=== PATIENT | female | born 1950 ===

== ENCOUNTER → 2017-03-29 | Outpatient (CLI) | payer MEDICARE, OTHER ==
[~2017-03-29] MED LIST: ACTEMRA80 MG/4 ML IV; ASPI325; ATOR10 PO; Adipex-P37.5 MG PO; Aspirin EC81 MG PO; BACL10 PO; BUPR150ER PO; Baclofen10 MG PO; CHLORELLA100 GM MC; CLOP75 PO; CREON DR 6,0001 EACH PO; CULTURELLE1 EACH PO; CYCL10 PO; Cymbalta60 MG PO; DONE5 PO; DOXY100 PO; DULO60; FISH OIL + D31 EACH PO; FOLI1 PO; Isosorbide Mono60 MG; Isosorbide Mono60 MG PO; KRILL OIL500 MG PO; LEVSOD137 PO; Lisinopril2.5 MG PO; MEMA5TAB PO; META800 PO; METO100ER PO; METTREX2.5 PO; MORP15ER PO; MORP30ER PO; Methotrexa25 MG/1 ML SC; NIAC500ER PO; Nitrostat0.4 MG SL; OXYC5 PO; PRAM.5 PO; PRED1 PO; Prinivil5 MG PO; Rituxan10 MG/ML IV; SPIR25 PO; TIZANIDINE HCL4 MG PO; TRIA15CR3 TOP; TYROSINE PO; VITAMIN D3400 UNIT PO
[2017-03-29 16:28] LABS: Anion Gap 8 mmol/L (6-16); Blood Urea Nitrogen 16 mg/dL (8-24); Bun/Creatinine Ratio 17.2 (12.0-20.0); CO2, Blood 27 mmol/L (21-32); Calcium, Blood 8.8 mg/dL (8.5-10.1); Chloride, Blood 105 mmol/L (98-108); Creatinine, Blood 0.93 mg/dL (0.40-1.00); Glomerular Filtration Rate >60 (60-); Glucose, Blood 134 mg/dL (70-99); Potassium, Blood 4.3 mmol/L (3.5-5.5); Sodium, Blood 140 mmol/L (136-145); Thyroid Stimulating Hormone 0.942 uIU/mL (0.360-4.800)
== END | disposition home or self-care (01) ==
LOC: LAB 15:30
PROVIDERS: Internal Medicine
DX: E00.2 Congenital iodine-deficiency syndrome, mixed type (principal)
CPT/HCPCS: 80048; 84443

== ENCOUNTER 2017-10-22 08:43 | Day surgery (SDC) | payer MEDICARE, OTHER | END 2017-10-22 22:45 | disposition home or self-care (01) | LOC: RAD 08:43 → CT 10:00 → RAD 22:45 | PROVIDERS: Radiology Diagnostic Radiology | PROC: B02BYZZ Computerized Tomography (CT Scan) of Spinal Cord using Other Contrast (ICD-10-PCS; principal; 2017-10-22 10:30) | DX: M48.56XA Collapsed vertebra, not elsewhere classified, lumbar region, initial encounter for fracture (principal); M48.061 Spinal stenosis, lumbar region without neurogenic claudication | CPT/HCPCS: 36415; 62304; 72132; 85730; Q9966 ==

== ENCOUNTER → 2018-10-01 | Outpatient (CLI) | payer MEDICARE, OTHER ==
[~2018-10-01] MED LIST changes: +EUTHYROX150 MCG PO; +GABA300 PO; +LISI5 PO; +MAGNESIUM250 MG PO; +METHOTREXA25 MG/1 M8 SC; -Methotrexa25 MG/1 ML SC; +Norco 10-325 T1 EACH PO; -Prinivil5 MG PO; +SIMPONI AR50 MG/4 ML IV; +TUMS500 MG PO; +Tylenol #3 El12.5 ML PO
[2018-10-03 15:06] LABS: HPV 16 Negative (Negative); HPV 18 Negative (Negative); HPV OTHER HR TYPES Negative (Negative)
== END | disposition home or self-care (01) ==
LOC: LAB SHORT 12:47 → LAB 12:47
PROVIDERS: Obstetrics & Gynecology Gynecology
DX: Z12.4 Encounter for screening for malignant neoplasm of cervix (principal)
CPT/HCPCS: 87624; G0123

== ENCOUNTER 2018-12-23 14:20 | Inpatient (IN) | payer MEDICARE, OTHER ==
[~2018-12-23] VITALS: Ht 165.1 cm; Wt 97.9 kg
[~2018-12-23 14:20] MED LIST changes: -EUTHYROX150 MCG PO; -GABA300 PO; -MAGNESIUM250 MG PO; -Norco 10-325 T1 EACH PO; -SIMPONI AR50 MG/4 ML IV; -TUMS500 MG PO; -Tylenol #3 El12.5 ML PO
[2018-12-23] MEDS ORDERED: GABA300 PO ×2 (15:28→19:40)
[2018-12-23 15:30] LABS: BASOPHILS ABSOLUTE AUTO 0.07 K/mm3 (0.00-0.23); BASOPHILS PERCENT AUTO 1 % (0-2); EOSINOPHILS ABSOLUTE AUTO 0.54 K/mm3 (0.00-0.68); EOSINOPHILS PERCENT AUTO 5 % (0-6); Hemoglobin 11.8 g/dL (11.5-16.0); IMMATURE GRAN ABSOLUTE AUTO 0.05 K/mm3 (0.00-0.10); IMMATURE GRAN PERCENT AUTO 1 % (0-1); LYMPHOCYTES ABSOLUTE AUTO 1.88 K/mm3 (0.84-5.20); LYMPHOCYTES PERCENT AUTO 18 % (21-46); MONOCYTES ABSOLUTE AUTO 1.49 K/mm3 (0.16-1.47); MONOCYTES PERCENT AUTO 15 % (4-13); Mean Corpuscular HGB Conc 32.8 g/dL (31.5-36.5); Mean Corpuscular Volume 107 fL (80-100); Mean Platelet Volume 9.5 fL (9.1-12.4); NEUTROPHILS ABSOLUTE AUTO 6.28 K/mm3 (1.96-9.15); NEUTROPHILS PERCENT AUTO 61 % (41-73); Platelet Count 199 K/mm3 (150-400); RDW Coefficient Variation 13.6 % (11.7-14.2); RDW Standard Deviation 52.8 fL (35.1-46.3); Red Blood Cell Count 3.37 M/mm3 (3.80-5.20); White Blood Cell Count 10.31 K/mm3 (4.00-11.30)
[2018-12-23] MEDS ORDERED: TUMS500 MG PO (15:30)
[2018-12-23 15:53] LABS: Alanine Aminotransfer (ALT/SGP 20 U/L (12-78); Albumin, Blood 3.2 g/dL (3.4-5.0); Albumin/Globulin Ratio 0.9 (0.8-1.8); Alk Phos 81 U/L (50-136); Anion Gap 5 mmol/L (6-16); Aspartate Aminotrans (AST/SGOT 16 U/L (12-37); Bilirubin, Total 0.6 mg/dL (0.1-1.0); Blood Urea Nitrogen 25 mg/dL (8-24); Bun/Creatinine Ratio 28.1 (12.0-20.0); CO2, Blood 30 mmol/L (21-32); Calcium, Blood 8.7 mg/dL (8.5-10.1); Chloride, Blood 104 mmol/L (98-108); Creatinine, Blood 0.89 mg/dL (0.40-1.00); Globulin, Blood 3.6 g/dL (2.2-4.0); Glomerular Filtration Rate >60 (60-); Glucose, Blood 118 mg/dL (70-99); Potassium, Blood 4.5 mmol/L (3.5-5.5); Sodium, Blood 139 mmol/L (136-145); Total Protein, Blood 6.8 g/dL (6.4-8.2)
[2018-12-23 17:24] LABS: Source, Urine Clean Catch
[2018-12-23 17:35] LABS: Bilirubin, Urine Neg (Neg); Blood, Urine Neg (Neg); Glucose Qualitative, Urine Neg (Neg); Ketones, Urine Neg (Neg); Leukocyte Esterase, Urine Neg (Neg); Nitrite, Urine Neg (Neg); Protein, Urine Neg (Neg); Urobilinogen, Urine NORM (Normal)
[2018-12-23 17:46] LABS: Appearance, Urine Clear (Clear); Color, Urine Yellow (P-Yellow)
[2018-12-23] MEDS ORDERED: EUTHYROX150 MCG PO (19:30)
[2018-12-23] MEDS ORDERED: Norco 10-325 T1 EACH PO (19:40)
[2018-12-23] MEDS ORDERED: MAGNESIUM250 MG PO (19:43)
[2018-12-23] MEDS ORDERED: SIMPONI AR50 MG/4 ML IV (19:44)
[2018-12-23 21:32] LABS: Thyroid Stimulating Hormone 0.103 uIU/mL (0.360-4.800)
--- NOTE | 2018-12-24 05:40 | NUR ---
PT ARRIVED TO THE FLOOR AT 2215 VIA STRETCHER. PT NOT IN ACUTE DISTRESS, VSS. PT DID COMPLAIN OF PAIN DURING THE SHIFT, BUT WAS ABLE TO GET A FEW HOURS SLEEP. PT WORE CPAP AT NIGHT. NO NEURO DEFICITS NOTED THIS SHIFT. PT IS INCONTINENT OF URINE AND CHANGED NEEDED. NO OTHER COMPLAINTS AT THIS TIME. WILL CONTINUE TO MONITOR.
[2018-12-24 05:46] LABS: Anion Gap 5 mmol/L (6-16); Blood Urea Nitrogen 19 mg/dL (8-24); Bun/Creatinine Ratio 23.1 (12.0-20.0); CO2, Blood 28 mmol/L (21-32); Calcium, Blood 8.5 mg/dL (8.5-10.1); Chloride, Blood 106 mmol/L (98-108); Creatinine, Blood 0.82 mg/dL (0.40-1.00); Free Thyroxine 1.12 ng/dL (0.70-1.60); Glomerular Filtration Rate >60 (60-); Glucose, Blood 103 mg/dL (70-99); Potassium, Blood 4.3 mmol/L (3.5-5.5); Sodium, Blood 139 mmol/L (136-145)
[2018-12-24 05:49] LABS: Triiodothyronine, Free 1.97 pg/mL (2.18-3.98)
--- NOTE | 2018-12-24 18:01 | NUR ---
PT A/O. EATING AND DRINKING WELL. PT HAS CHRONIC PAIN IN HER KNEES, TREATED PER EMAR. PT WORKED WITH OT TODAY AND TOLERATED WELL, OT REPORTED THAT HER KNEES GIVE OUT OCCASIONALLY AND RECOMENDED BEING PREPARED. PT UP TO THE CHAIR TWICE DURING THIS SHIFT AND TOLERATED WELL.
--- NOTE | 2018-12-25 10:52 | NUR ---
PATIENT HAS BEEN HAVING A BLOODY NOSE SINCE THIS MORNING. SHE STATES SHE BLEW HER NOSE AND THAT STARTED THE BLEEDING. PLACED HUMIDIFICATION ON HER OXYGEN. HOPEFULLY THAT WILL IMPROVE THE BLEEDING.
--- NOTE | 2018-12-25 18:30 | NUR ---
SHIFT SUMMARY PATIENT HAD SOME DIFFICULTY WITH PAIN MANAGEMENT. PATIENT GIVEN SCHEDULED MS CONTIN ORDERED AND PRN APAP Q4HRS PER REQUEST. THE TYLENOL SEEMS TO HELP. PAIN IS IN BILATERAL KNEES. R KNEE XRAY HAS BEEN ORDERED FOR PATIENT. PATIENT IS A/Ox4 AND COOPERATIVE WITH STAFF. WILL CONTINUE TO MONITOR AND PROVIDE CARE NEEDED.
[2018-12-26 05:36] LABS: BASOPHILS ABSOLUTE AUTO 0.06 K/mm3 (0.00-0.23); BASOPHILS PERCENT AUTO 1 % (0-2); EOSINOPHILS ABSOLUTE AUTO 0.61 K/mm3 (0.00-0.68); EOSINOPHILS PERCENT AUTO 9 % (0-6); Hematocrit 30.6 % (33.0-51.0); IMMATURE GRAN ABSOLUTE AUTO 0.05 K/mm3 (0.00-0.10); IMMATURE GRAN PERCENT AUTO 1 % (0-1); LYMPHOCYTES ABSOLUTE AUTO 1.73 K/mm3 (0.84-5.20); LYMPHOCYTES PERCENT AUTO 25 % (21-46); MONOCYTES ABSOLUTE AUTO 0.72 K/mm3 (0.16-1.47); MONOCYTES PERCENT AUTO 10 % (4-13); Mean Corpuscular HGB 34.8 pg (26.0-34.0); Mean Corpuscular HGB Conc 32.7 g/dL (31.5-36.5); Mean Corpuscular Volume 107 fL (80-100); Mean Platelet Volume 9.4 fL (9.1-12.4); NEUTROPHILS ABSOLUTE AUTO 3.78 K/mm3 (1.96-9.15); NEUTROPHILS PERCENT AUTO 54 % (41-73); Platelet Count 186 K/mm3 (150-400); RDW Coefficient Variation 13.2 % (11.7-14.2); RDW Standard Deviation 50.9 fL (35.1-46.3); Red Blood Cell Count 2.87 M/mm3 (3.80-5.20); White Blood Cell Count 6.95 K/mm3 (4.00-11.30)
[2018-12-26 06:12] LABS: Anion Gap 6 mmol/L (6-16); Blood Urea Nitrogen 19 mg/dL (8-24); Bun/Creatinine Ratio 23.5 (12.0-20.0); CO2, Blood 29 mmol/L (21-32); Calcium, Blood 8.6 mg/dL (8.5-10.1); Chloride, Blood 103 mmol/L (98-108); Creatinine, Blood 0.81 mg/dL (0.40-1.00); Glomerular Filtration Rate >60 (60-); Glucose, Blood 105 mg/dL (70-99); Potassium, Blood 3.9 mmol/L (3.5-5.5); Sodium, Blood 138 mmol/L (136-145)
--- NOTE | 2018-12-26 06:43 | NUR ---
PATIENT REPORTS TO ME THIS MORNING THAT SOMETIMES SHE WAKES UP WITH A BLOODY MOUTH AND SO SHE DID, ALLY COLORED DRIED BLOOD ON HER LIPS. WHEN ASKED IF SHE REPORTED SPONTANEOUS BLEEDING TO HER DR. PASSED THIS INFO TO DAY NURSE.
--- NOTE | 2018-12-26 16:45 | NUR ---
SHIFT SUMMARY PATIENT HAS BEEN WITHOUT ISSUE OR CONCERN THIS SHIFT. SHE HAS HAD MUCH BETTER PAIN CONTROL TODAY THAN YESTERDAY AND IS NOTED TO BEING MUCH STRONGER WITH HER TRANSFERS. DR TORRES ASKED THAT PATIENT BE WEANED OFF OF OXYGEN AND TO CLOSELY MONITOR THE PATIENT'S O2 SATS. OXYGEN TURNED DOWN FROM 2L TO 1L ABOUT 30 MINUTES AGO AND THE PATIENT WAS SAT'ING IN THE 's. I THEN TURNED HER OXYGEN COMPLETELY OFF AND SHE HAS BEEN SAT'ING AT OR ABOVE 90 THIS ENTIRE TIME. THE PATIENT IS ON CONTINUOUS BIOX WHICH WOULD ALERT WITH LOW SATS. THE PATIENT IS PLEASANT AND COOPERATIVE WITH STAFF. WILL CONTINUE TO MONITOR AND PROVIDE CARE NEEDED.
--- NOTE | 2018-12-26 23:22 | NUR ---
1919: ASSUMED CARE OF PATIENT. PT SITTING IN CHAIR VISITING WITH FAMILY. PT DENIES PAIN, SOB, NAUSEA, DECLINES TO REPOSITION. CALL GREEN WITHIN REACH. 1999: ASSESSMENT COMPLETE. PT O2=94$ ON 1L N/C. IV C/D/I 2118: MEDS GIVEN PER EMAR. O2 97% ON 1L N/C TYLENOL GIVEN ALSO FOR GENERALIZED PAIN
--- NOTE | 2018-12-27 00:05 | NUR ---
SPOKE TO BROOM STITCHER DAMION HARPER REGARDING PT C/O CP. V/S ARE GOOD AT 111/70, HR62, O2 95% RR16, HEARD GAS BUBBLES WHEN I TOOK A LISTEN TO HER HEART. GAVE PATIENT SOME SODA AND GOT HER UP TO DANGLE AT THE BEDSIDE. SHE STARTED TO FEEL BETTER. BROOM STITCHER CAME TO THE FLOOR TO SEE HER.
[2018-12-27 05:45] LABS: BASOPHILS ABSOLUTE AUTO 0.07 K/mm3 (0.00-0.23); BASOPHILS PERCENT AUTO 1 % (0-2); EOSINOPHILS ABSOLUTE AUTO 0.65 K/mm3 (0.00-0.68); EOSINOPHILS PERCENT AUTO 10 % (0-6); Hemoglobin 10.3 g/dL (11.5-16.0); IMMATURE GRAN ABSOLUTE AUTO 0.02 K/mm3 (0.00-0.10); IMMATURE GRAN PERCENT AUTO 0 % (0-1); LYMPHOCYTES ABSOLUTE AUTO 1.77 K/mm3 (0.84-5.20); LYMPHOCYTES PERCENT AUTO 27 % (21-46); MONOCYTES ABSOLUTE AUTO 0.88 K/mm3 (0.16-1.47); MONOCYTES PERCENT AUTO 13 % (4-13); Mean Corpuscular HGB 34.1 pg (26.0-34.0); Mean Corpuscular HGB Conc 32.2 g/dL (31.5-36.5); Mean Corpuscular Volume 106 fL (80-100); Mean Platelet Volume 9.7 fL (9.1-12.4); NEUTROPHILS ABSOLUTE AUTO 3.21 K/mm3 (1.96-9.15); NEUTROPHILS PERCENT AUTO 49 % (41-73); Platelet Count 207 K/mm3 (150-400); RDW Coefficient Variation 13.3 % (11.7-14.2); RDW Standard Deviation 50.4 fL (35.1-46.3); Red Blood Cell Count 3.02 M/mm3 (3.80-5.20)
[2018-12-27 06:09] LABS: Albumin, Blood 2.9 g/dL (3.4-5.0); Anion Gap 6 mmol/L (6-16); Blood Urea Nitrogen 21 mg/dL (8-24); Bun/Creatinine Ratio 24.4 (12.0-20.0); CO2, Blood 29 mmol/L (21-32); Calcium, Blood 8.7 mg/dL (8.5-10.1); Chloride, Blood 103 mmol/L (98-108); Creatinine, Blood 0.86 mg/dL (0.40-1.00); Glomerular Filtration Rate >60 (60-); Glucose, Blood 89 mg/dL (70-99); Phosphorus, Blood 4.4 mg/dL (2.5-4.9); Potassium, Blood 4.1 mmol/L (3.5-5.5); Sodium, Blood 138 mmol/L (136-145)
[2018-12-27] MEDS ORDERED: Tylenol #3 El12.5 ML PO (10:50)
--- NOTE | 2018-12-27 12:43 | NUR ---
DISCHARGE SUMMARY PATIENT GIVEN ALL MEDICATIONS PRIOR TO DISCHARGE. MEDICATION LIST AND INFORMATION SENT HOME WITH THE PATIENT PRIOR TO HER DISCHARGE THIS MORNING. SPOKE WITH [facility] [place] ABOUT THE PATIENT'S CURRENT OXYGEN NEED AND VERIFIED WITH THE ON-CALL ABOUT THE PRESCRIPTION. THIS WAS FAXED OVER TO [facility] [place] TO BE SET UP AT THE PATIENT'S HOME. PATIENT TOOK ALL BELONGINGS WITH HER.
== END 2018-12-27 12:10 | disposition home or self-care (01) | DRG 546 ==
LOC: ER 14:20 → MEDS 14:21 → ENPENDDIS 12-27 10:12 → MEDS 12-27 12:10
PROVIDERS: Emergency Medicine; Family Medicine; Internal Medicine Gastroenterology; Nurse Practitioner Acute Care; ADMIT Internal Medicine
DX: M06.9 Rheumatoid arthritis, unspecified (principal); M84.48XA Pathological fracture, other site, initial encounter for fracture; Q78.0 Osteogenesis imperfecta; M62.838 Other muscle spasm; G47.33 Obstructive sleep apnea (adult) (pediatric); I25.10 Atherosclerotic heart disease of native coronary artery without angina pectoris; I10 Essential (primary) hypertension; E03.9 Hypothyroidism, unspecified; W19.XXXA Unspecified fall, initial encounter; M54.9 Dorsalgia, unspecified
CPT/HCPCS: 36415; 70450; 72100; 73560-RT; 73562-LT; 73562-RT; 80048; 80053; 80069; 81003; 82550; 83735; 84439; 84443; 84481; 85025; 93005; 93010; 94762; 96360; 96361; 96372; 96372-59; 97110; 97116; 97162; 97166; 97530; 97535; 99285-25; G0378; J1650; J7030; J7120

== ENCOUNTER 2019-05-20 09:26 | Day surgery (SDC) | payer MEDICARE, OTHER ==
[~2019-05-20] VITALS: Ht 165.1 cm; Wt 96.7 kg
[~2019-05-20 09:26] MED LIST changes: +CREON DR 6,0001 EACH; +DOCU100 PO; +DULO60 PO; +ERGO50000 PO; +EUTHYROX150 MCG PO; +Estrace Vagin42.5 GM; +GABA300; +GABA300 PO; +Imdur-ER60 MG; +LEVO-T150 MC1 PO; +MAGNESIUM250 MG PO; +MEMA10 PO; +NITR.4SL SL; +Norco 10-325 T1 EACH PO; +PERCOCET 10-321 EACH; +RASUVO 2525 MG/0.5 SC; +Reclast 55 MG/100 M; +SIMPONI AR50 MG/4 ML IV; +SIMPONI50 MG/0.1; +TUMS500 MG PO; +Tylenol #3 El12.5 ML PO
== END 2019-05-20 12:03 | disposition home or self-care (01) ==
LOC: ORSCSDS 09:26
PROVIDERS: Internal Medicine Gastroenterology
PROC: 0DBK8ZX Excision of Ascending Colon, Via Natural or Artificial Opening Endoscopic, Diagnostic (ICD-10-PCS; principal; 2019-05-20 10:45)
DX: Z12.11 Encounter for screening for malignant neoplasm of colon (principal); Z86.010 Personal history of colon polyps; D12.2 Benign neoplasm of ascending colon; K57.30 Diverticulosis of large intestine without perforation or abscess without bleeding; K64.8 Other hemorrhoids; I10 Essential (primary) hypertension; I25.10 Atherosclerotic heart disease of native coronary artery without angina pectoris; G47.33 Obstructive sleep apnea (adult) (pediatric); I25.2 Old myocardial infarction; M79.7 Fibromyalgia; E66.9 Obesity, unspecified; Z68.34 Body mass index [BMI] 34.0-34.9, adult; E03.9 Hypothyroidism, unspecified; Z79.899 Other long term (current) drug therapy
CPT/HCPCS: 88305; J2405; J2704; J7120

== ENCOUNTER → 2019-09-23 | Outpatient (CLI) | payer MEDICARE, OTHER ==
[2019-09-23 17:39] LABS: Campylobacter Sp Not Detected (NOT DETECT)
[2019-09-23 17:40] LABS: Adenovirus F 40/41 Not Detected (NOT DETECT); Astrovirus Not Detected (NOT DETECT); Cryptosporidium Not Detected (NOT DETECT); Cyclospora Cayetanensis Not Detected (NOT DETECT); E. Coli O157 Not Detected (NOT DETECT); Entamoeba Histolytica Not Detected (NOT DETECT); Enteroaggregative E. coli-EAEC Not Detected (NOT DETECT); Enteropathogenic E. coli-EPEC Not Detected (NOT DETECT); Enterotoxigenic E. coli-ETEC Not Detected (NOT DETECT); Giardia Lamblia Not Detected (NOT DETECT); Norovirus GI/GII Not Detected (NOT DETECT); Plesiomonas Shigelloides Not Detected (NOT DETECT); Rotavirus A Not Detected (NOT DETECT); Salmonella Sp Not Detected (NOT DETECT); Sapovirus Not Detected (NOT DETECT); Shiga Toxin-prod E. coli-STEC Not Detected (NOT DETECT); Shigella/Enteroin E. coli-EIEC Not Detected (NOT DETECT); Vibrio Cholerae Not Detected (NOT DETECT); Vibrio Sp Not Detected (NOT DETECT); Yersinia Enterocolitica Not Detected (NOT DETECT)
== END ==
LOC: LAB SHORT 10:50 → LAB 10:50
PROVIDERS: Student in an Organized Health Care Education/Training Program
DX: R19.7 Diarrhea, unspecified (principal)
CPT/HCPCS: 0097U

== ENCOUNTER 2020-09-15 04:16 | Day surgery (SDC) | payer MEDICARE, OTHER ==
[~2020-09-15 04:16] MED LIST changes: -GABA300
--- NOTE | 2020-09-15 11:42 | NUR ---
PT STATES SHE HAD A WOUND ON HER BACK. WAS TREATED WITH ANTIBIOTICS AND FINISHED THEM A WEEK AGO. WOUND IS HEALING. INFORMED DR. GUERRERO AND STATED IT IS OK TO PROCEDE WITH TODAYS INFUSION OF SIMPONI ARIA.
[2020-09-15] MEDS ORDERED: Magnesium250 MG PO (12:08)
[2020-09-15] MEDS ORDERED: VOLTAREN ARTHRI20 GM (12:09)
[2020-09-15] MEDS ORDERED: SPIR25 PO (12:10)
[2020-09-15] MEDS ORDERED: TUMS500 MG PO (12:10)
[2020-09-15] MEDS ORDERED: GABA300 PO (12:10)
[2020-09-15] MEDS ORDERED: METO100ER PO (12:12)
[2020-09-15] MEDS ORDERED: LEFL20 PO ×2 (12:12→12:14)
[2020-09-15] MEDS ORDERED: DONE5 (12:13)
[2020-09-15] MEDS ORDERED: FISH OIL 1,2001 EAC7 PO (12:13)
== END 2020-09-15 12:21 | disposition home or self-care (01) ==
LOC: ATC 04:16
DX: M06.9 Rheumatoid arthritis, unspecified (principal); I10 Essential (primary) hypertension; I25.2 Old myocardial infarction; Z79.891 Long term (current) use of opiate analgesic; Z79.899 Other long term (current) drug therapy; Z88.8 Allergy status to other drugs, medicaments and biological substances; Z96.653 Presence of artificial knee joint, bilateral
CPT/HCPCS: 96365; J1602

== ENCOUNTER 2020-11-09 01:55 | Day surgery (SDC) | payer MEDICARE, OTHER ==
[~2020-11-09] VITALS: Wt 86.3 kg
[~2020-11-09 01:55] MED LIST changes: +DONE5; +FISH OIL 1,2001 EAC7 PO; +LEFL20 PO; +Magnesium250 MG PO; +VOLTAREN ARTHRI20 GM
== END 2020-11-09 16:03 | disposition home or self-care (01) ==
LOC: ATC 01:55
DX: M06.9 Rheumatoid arthritis, unspecified (principal); I10 Essential (primary) hypertension; I25.2 Old myocardial infarction; E03.9 Hypothyroidism, unspecified; Z79.899 Other long term (current) drug therapy; Z79.891 Long term (current) use of opiate analgesic; Z88.8 Allergy status to other drugs, medicaments and biological substances
CPT/HCPCS: 96365; J1602

== ENCOUNTER 2021-01-04 02:21 | Day surgery (SDC) | payer MEDICARE, OTHER | END 2021-01-04 12:23 | disposition home or self-care (01) | LOC: ATC 02:21 | DX: M06.9 Rheumatoid arthritis, unspecified (principal); J84.9 Interstitial pulmonary disease, unspecified; M81.0 Age-related osteoporosis without current pathological fracture; I10 Essential (primary) hypertension; E03.9 Hypothyroidism, unspecified; Z79.82 Long term (current) use of aspirin; Z79.891 Long term (current) use of opiate analgesic | CPT/HCPCS: 96365; J1602 ==

== ENCOUNTER 2021-03-02 01:00 | Day surgery (SDC) | payer MEDICARE, OTHER | END 2021-03-02 12:19 | disposition home or self-care (01) | LOC: ATC 01:00 | DX: M06.09 Rheumatoid arthritis without rheumatoid factor, multiple sites (principal); I10 Essential (primary) hypertension; E03.9 Hypothyroidism, unspecified; I25.2 Old myocardial infarction; Z79.891 Long term (current) use of opiate analgesic; Z88.8 Allergy status to other drugs, medicaments and biological substances | CPT/HCPCS: 96365; J1602 ==

== ENCOUNTER 2021-04-27 02:14 | Day surgery (SDC) | payer MEDICARE, OTHER | END 2021-04-27 12:40 | disposition home or self-care (01) | LOC: ATC 02:14 | DX: M06.9 Rheumatoid arthritis, unspecified (principal); Z88.8 Allergy status to other drugs, medicaments and biological substances; I25.2 Old myocardial infarction; I10 Essential (primary) hypertension; E03.9 Hypothyroidism, unspecified; M81.0 Age-related osteoporosis without current pathological fracture; J84.9 Interstitial pulmonary disease, unspecified; Z95.5 Presence of coronary angioplasty implant and graft; Z96.653 Presence of artificial knee joint, bilateral; Z79.899 Other long term (current) drug therapy | CPT/HCPCS: 96365; J1602 ==

== ENCOUNTER 2021-10-18 02:24 | Day surgery (SDC) | payer MEDICARE, OTHER | END 2021-10-18 15:13 | disposition home or self-care (01) | LOC: ATC 02:24 | DX: M06.9 Rheumatoid arthritis, unspecified (principal) | CPT/HCPCS: 96365; J1602 ==

== ENCOUNTER 2021-12-13 07:20 | Day surgery (SDC) | payer MEDICARE, OTHER ==
[2021-12-13 09:08] LABS: BASOPHILS ABSOLUTE AUTO 0.08 K/mm3 (0.00-0.23); BASOPHILS PERCENT AUTO 1 % (0-2); EOSINOPHILS ABSOLUTE AUTO 0.29 K/mm3 (0.00-0.68); EOSINOPHILS PERCENT AUTO 4 % (0-6); Hematocrit 37.7 % (33.0-51.0); Hemoglobin 12.6 g/dL (11.5-16.0); IMMATURE GRAN ABSOLUTE AUTO 0.03 K/mm3 (0.00-0.10); IMMATURE GRAN PERCENT AUTO 0 % (0-1); LYMPHOCYTES ABSOLUTE AUTO 3.19 K/mm3 (0.84-5.20); LYMPHOCYTES PERCENT AUTO 41 % (21-46); MONOCYTES PERCENT AUTO 10 % (4-13); Mean Corpuscular HGB 33.1 pg (26.0-34.0); Mean Corpuscular HGB Conc 33.4 g/dL (31.5-36.5); Mean Corpuscular Volume 99 fL (80-100); Mean Platelet Volume 11.4 fL (9.1-12.4); NEUTROPHILS ABSOLUTE AUTO 3.41 K/mm3 (1.96-9.15); NEUTROPHILS PERCENT AUTO 44 % (41-73); Platelet Count 272 K/mm3 (150-400); RDW Coefficient Variation 13.2 % (11.7-14.2); RDW Standard Deviation 47.9 fL (35.1-46.3); Red Blood Cell Count 3.81 M/mm3 (3.80-5.20)
[2021-12-13 09:16] LABS: Albumin, Blood 3.4 g/dL (3.4-5.0); Albumin/Globulin Ratio 0.8 (0.8-1.8); Bilirubin, Total 0.5 mg/dL (0.1-1.0); Bun/Creatinine Ratio 18.5 (12.0-20.0); Calcium, Blood 8.8 mg/dL (8.5-10.1); Creatinine, Blood 1.08 mg/dL (0.40-1.00); Globulin, Blood 4.5 g/dL (2.2-4.0); Potassium, Blood 5.7 mmol/L (3.5-5.5); Total Protein, Blood 7.9 g/dL (6.4-8.2)
[2021-12-13 11:22] LABS: CHOL/HDL RATIO 3.7; Cholesterol 185 mg/dL (50-200); HDL Cholesterol 50 mg/dL (>39); LDL/HDL RATIO 1.8; Low Density Lipoprotein Chol 88 mg/dL (0-110); Thyroid Stimulating Hormone 0.398 uIU/mL (0.360-4.800); Triglycerides 234 mg/dL (30-160); Very Low Density Lipoprot Chol 46 mg/dL (6-32)
== END 2021-12-13 09:36 | disposition home or self-care (01) ==
LOC: ATC 07:20
PROVIDERS: Family Medicine; Internal Medicine Rheumatology
DX: M06.9 Rheumatoid arthritis, unspecified (principal); Z88.8 Allergy status to other drugs, medicaments and biological substances; I25.2 Old myocardial infarction; I10 Essential (primary) hypertension; E03.9 Hypothyroidism, unspecified; M81.0 Age-related osteoporosis without current pathological fracture; J84.9 Interstitial pulmonary disease, unspecified
CPT/HCPCS: 80053; 80061; 84443; 85025; 85651; 96365; A9270; J1602; J2920

== ENCOUNTER 2022-02-07 02:37 | Day surgery (SDC) | payer MEDICARE, OTHER ==
[2022-02-07] MEDS ORDERED: ATOR20 PO (10:51)
== END 2022-02-07 11:05 | disposition home or self-care (01) ==
LOC: ATC 02:37
DX: M06.9 Rheumatoid arthritis, unspecified (principal); D84.821 Immunodeficiency due to drugs; M81.0 Age-related osteoporosis without current pathological fracture; J84.9 Interstitial pulmonary disease, unspecified
CPT/HCPCS: 96365; J1602

== ENCOUNTER 2022-04-13 02:23 | Day surgery (SDC) | payer MEDICARE, OTHER ==
[~2022-04-13] VITALS: Wt 91.8 kg
[~2022-04-13 02:23] MED LIST changes: +ATOR20 PO
[2022-04-13] MEDS ORDERED: SIMPONI AR50 MG/4 M1 (09:56)
[2022-04-13 10:48] LABS: BASOPHILS ABSOLUTE AUTO 0.07 K/mm3 (0.00-0.23); BASOPHILS PERCENT AUTO 1 % (0-2); EOSINOPHILS ABSOLUTE AUTO 0.29 K/mm3 (0.00-0.68); EOSINOPHILS PERCENT AUTO 4 % (0-6); Hematocrit 39.7 % (33.0-51.0); Hemoglobin 13.1 g/dL (11.5-16.0); IMMATURE GRAN ABSOLUTE AUTO 0.04 K/mm3 (0.00-0.10); IMMATURE GRAN PERCENT AUTO 1 % (0-1); LYMPHOCYTES ABSOLUTE AUTO 2.66 K/mm3 (0.84-5.20); LYMPHOCYTES PERCENT AUTO 36 % (21-46); MONOCYTES PERCENT AUTO 11 % (4-13); Mean Corpuscular HGB 32.6 pg (26.0-34.0); Mean Corpuscular Volume 99 fL (80-100); NEUTROPHILS ABSOLUTE AUTO 3.64 K/mm3 (1.96-9.15); NEUTROPHILS PERCENT AUTO 49 % (41-73); Platelet Count 246 K/mm3 (150-400); RDW Coefficient Variation 12.9 % (11.7-14.2); RDW Standard Deviation 46.5 fL (35.1-46.3); Red Blood Cell Count 4.02 M/mm3 (3.80-5.20)
[2022-04-13 11:05] LABS: C-REACTIVE PROTEIN, EXT RANGE 0.573 mg/dL (0.000-0.300)
[2022-04-13 11:10] LABS: Albumin, Blood 3.6 g/dL (3.4-5.0); Albumin/Globulin Ratio 0.9 (0.8-1.8); Bilirubin, Total 0.3 mg/dL (0.1-1.0); Bun/Creatinine Ratio 20.2 (12.0-20.0); Calcium, Blood 9.3 mg/dL (8.5-10.1); Creatinine, Blood 1.14 mg/dL (0.40-1.00); Globulin, Blood 4.1 g/dL (2.2-4.0); Potassium, Blood 4.2 mmol/L (3.5-5.5); Total Protein, Blood 7.7 g/dL (6.4-8.2)
== END 2022-04-13 11:25 | disposition home or self-care (01) ==
LOC: ATC 02:23
PROVIDERS: Internal Medicine Rheumatology
DX: M06.9 Rheumatoid arthritis, unspecified (principal); M81.0 Age-related osteoporosis without current pathological fracture; J84.9 Interstitial pulmonary disease, unspecified; Z79.899 Other long term (current) drug therapy; Z23 Encounter for immunization
CPT/HCPCS: 80053; 85025; 86140; J1602

== ENCOUNTER 2022-10-05 01:48 | Day surgery (SDC) | payer MEDICARE, OTHER ==
[~2022-10-05] VITALS: Wt 90.8 kg
[~2022-10-05 01:48] MED LIST changes: +SIMPONI AR50 MG/4 M1
[2022-10-05 09:05] VITALS: BP 177/69
[2022-10-05 09:33] LABS: BASOPHILS PERCENT AUTO 1 % (0-2); EOSINOPHILS ABSOLUTE AUTO 0.45 K/mm3 (0.00-0.68); EOSINOPHILS PERCENT AUTO 5 % (0-6); Hematocrit 38.3 % (33.0-51.0); Hemoglobin 12.8 g/dL (11.5-16.0); IMMATURE GRAN ABSOLUTE AUTO 0.02 K/mm3 (0.00-0.10); IMMATURE GRAN PERCENT AUTO 0 % (0-1); LYMPHOCYTES ABSOLUTE AUTO 3.08 K/mm3 (0.84-5.20); LYMPHOCYTES PERCENT AUTO 37 % (21-46); MONOCYTES ABSOLUTE AUTO 0.88 K/mm3 (0.16-1.47); MONOCYTES PERCENT AUTO 11 % (4-13); Mean Corpuscular HGB 32.4 pg (26.0-34.0); Mean Corpuscular HGB Conc 33.4 g/dL (31.5-36.5); Mean Corpuscular Volume 97 fL (80-100); Mean Platelet Volume 9.9 fL (9.1-12.4); NEUTROPHILS ABSOLUTE AUTO 3.82 K/mm3 (1.96-9.15); NEUTROPHILS PERCENT AUTO 46 % (41-73); Platelet Count 253 K/mm3 (150-400); RDW Coefficient Variation 12.7 % (11.7-14.2); RDW Standard Deviation 45.3 fL (35.1-46.3); Red Blood Cell Count 3.95 M/mm3 (3.80-5.20); White Blood Cell Count 8.35 K/mm3 (4.00-11.30)
[2022-10-05 10:26] LABS: Albumin, Blood 3.6 g/dL (3.4-5.0); Albumin/Globulin Ratio 0.8 (0.8-1.8); Bilirubin, Total 0.2 mg/dL (0.1-1.0); Bun/Creatinine Ratio 16.8 (12.0-20.0); C-REACTIVE PROTEIN, EXT RANGE 0.52 mg/dL (0.000-0.300); Calcium, Blood 9.2 mg/dL (8.5-10.1); Creatinine, Blood 1.19 mg/dL (0.40-1.00); Globulin, Blood 4.4 g/dL (2.2-4.0); Potassium, Blood 4.4 mmol/L (3.5-5.5)
--- NOTE | 2022-10-05 13:48 | NUR ---
Lab results from today faxed to Dr. Phelps's office.
== END 2022-10-05 10:05 | disposition home or self-care (01) ==
LOC: ATC 01:48
PROVIDERS: Internal Medicine Rheumatology
DX: M05.79 Rheumatoid arthritis with rheumatoid factor of multiple sites without organ or systems involvement (principal); Z79.899 Other long term (current) drug therapy; M81.0 Age-related osteoporosis without current pathological fracture; J84.9 Interstitial pulmonary disease, unspecified; R30.0 Dysuria
CPT/HCPCS: 80053; 85025; 86140; 96365; J1602

== ENCOUNTER 2023-03-28 01:39 | Day surgery (SDC) | payer MEDICARE, OTHER ==
[2023-03-28 14:05] VITALS: BP 151/64
== END 2023-03-28 16:48 | disposition home or self-care (01) ==
LOC: ATC 01:39
DX: M06.9 Rheumatoid arthritis, unspecified (principal); M81.0 Age-related osteoporosis without current pathological fracture; Z96.653 Presence of artificial knee joint, bilateral
CPT/HCPCS: 96413; 96415; J7050; Q5103

== ENCOUNTER 2023-05-09 01:15 | Day surgery (SDC) | payer MEDICARE, OTHER ==
[2023-05-09 14:06] VITALS: BP 113/72
[2023-05-09] MEDS ORDERED: Infliximab-DYYB 400 MG in NS 250 ML IV SCH (14:20)
== END 2023-05-09 16:37 | disposition home or self-care (01) ==
LOC: ATC 01:15
DX: M05.9 Rheumatoid arthritis with rheumatoid factor, unspecified (principal); I25.10 Atherosclerotic heart disease of native coronary artery without angina pectoris; Z95.5 Presence of coronary angioplasty implant and graft; I25.2 Old myocardial infarction; Z79.890 Hormone replacement therapy; Z79.899 Other long term (current) drug therapy
CPT/HCPCS: 96413; 96415; J7050; Q5103

== ENCOUNTER 2023-10-13 09:07 | Emergency (ER) | payer MEDICARE, OTHER ==
[~2023-10-13] VITALS: Ht 165.1 cm; Wt 81.7 kg
[2023-10-13] MEDS ORDERED: Ondansetron HCl 2 MG / ML 2ML Vial IV ONE (09:40)
[2023-10-13 09:43] LABS: BASOPHILS PERCENT AUTO 1 % (0-2); EOSINOPHILS ABSOLUTE AUTO 0.46 K/mm3 (0.00-0.68); EOSINOPHILS PERCENT AUTO 4 % (0-6); Hematocrit 38.9 % (33.0-51.0); IMMATURE GRAN ABSOLUTE AUTO 0.05 K/mm3 (0.00-0.10); IMMATURE GRAN PERCENT AUTO 0 % (0-1); LYMPHOCYTES ABSOLUTE AUTO 3.88 K/mm3 (0.84-5.20); LYMPHOCYTES PERCENT AUTO 34 % (21-46); MONOCYTES ABSOLUTE AUTO 1.21 K/mm3 (0.16-1.47); MONOCYTES PERCENT AUTO 11 % (4-13); Mean Corpuscular HGB 32.8 pg (26.0-34.0); Mean Corpuscular HGB Conc 33.4 g/dL (31.5-36.5); Mean Corpuscular Volume 98 fL (80-100); Mean Platelet Volume 10.6 fL (9.1-12.4); NEUTROPHILS ABSOLUTE AUTO 5.77 K/mm3 (1.96-9.15); NEUTROPHILS PERCENT AUTO 50 % (41-73); Platelet Count 258 K/mm3 (150-400); RDW Coefficient Variation 13.7 % (11.7-14.2); RDW Standard Deviation 49.5 fL (35.1-46.3); Red Blood Cell Count 3.96 M/mm3 (3.80-5.20); White Blood Cell Count 11.47 K/mm3 (4.00-11.30)
[2023-10-13 10:07] LABS: Albumin, Blood 3.5 g/dL (3.4-5.0); Albumin/Globulin Ratio 0.9 (0.8-1.8); Bilirubin, Total 0.2 mg/dL (0.1-1.0); Bun/Creatinine Ratio 20.8 (12.0-20.0); Creatinine, Blood 1.06 mg/dL (0.40-1.00); Globulin, Blood 4.1 g/dL (2.2-4.0); Potassium, Blood 4.4 mmol/L (3.5-5.5); Total Protein, Blood 7.6 g/dL (6.4-8.2)
[2023-10-13] MEDS ORDERED: HYDR1TAB94 PO (11:44)
[2023-10-13 12:40] VITALS: BP 169/77
== END 2023-10-13 12:49 | disposition home or self-care (01) ==
LOC: ER 09:07
PROVIDERS: Emergency Medicine
DX: I25.10 Atherosclerotic heart disease of native coronary artery without angina pectoris (principal); W18.30XA Fall on same level, unspecified, initial encounter; Z88.6 Allergy status to analgesic agent; Z88.8 Allergy status to other drugs, medicaments and biological substances; Z88.1 Allergy status to other antibiotic agents; Z88.2 Allergy status to sulfonamides; Z79.899 Other long term (current) drug therapy; M06.9 Rheumatoid arthritis, unspecified; I10 Essential (primary) hypertension; E78.00 Pure hypercholesterolemia, unspecified; G47.00 Insomnia, unspecified; I25.2 Old myocardial infarction
CPT/HCPCS: 71046; 80053; 84484; 85025

== ENCOUNTER 2023-10-24 03:21 | Day surgery (SDC) | payer MEDICARE, OTHER ==
[~2023-10-24] VITALS: Wt 81.8 kg
[~2023-10-24 03:21] MED LIST changes: +HYDR1TAB94 PO
[2023-10-24 09:26] VITALS: BP 158/72
[2023-10-24] MEDS ORDERED: Infliximab-DYYB 400 MG in NS 250 ML IV SCH (10:00)
[2023-10-24 10:26] LABS: BASOPHILS ABSOLUTE AUTO 0.07 K/mm3 (0.00-0.23); BASOPHILS PERCENT AUTO 1 % (0-2); EOSINOPHILS ABSOLUTE AUTO 0.36 K/mm3 (0.00-0.68); EOSINOPHILS PERCENT AUTO 5 % (0-6); Hematocrit 35.2 % (33.0-51.0); Hemoglobin 11.5 g/dL (11.5-16.0); IMMATURE GRAN ABSOLUTE AUTO 0.03 K/mm3 (0.00-0.10); IMMATURE GRAN PERCENT AUTO 1 % (0-1); LYMPHOCYTES ABSOLUTE AUTO 2.69 K/mm3 (0.84-5.20); LYMPHOCYTES PERCENT AUTO 41 % (21-46); MONOCYTES ABSOLUTE AUTO 0.63 K/mm3 (0.16-1.47); MONOCYTES PERCENT AUTO 10 % (4-13); Mean Corpuscular HGB Conc 32.7 g/dL (31.5-36.5); Mean Corpuscular Volume 98 fL (80-100); Mean Platelet Volume 10.4 fL (9.1-12.4); NEUTROPHILS ABSOLUTE AUTO 2.85 K/mm3 (1.96-9.15); NEUTROPHILS PERCENT AUTO 43 % (41-73); Platelet Count 257 K/mm3 (150-400); RDW Coefficient Variation 13.5 % (11.7-14.2); RDW Standard Deviation 48.6 fL (35.1-46.3); Red Blood Cell Count 3.59 M/mm3 (3.80-5.20); White Blood Cell Count 6.63 K/mm3 (4.00-11.30)
[2023-10-24 10:38] LABS: C-REACTIVE PROTEIN, EXT RANGE 0.549 mg/dL (0.000-0.300)
[2023-10-24 11:04] LABS: Albumin, Blood 3.1 g/dL (3.4-5.0); Albumin/Globulin Ratio 0.8 (0.8-1.8); Bilirubin, Total 0.2 mg/dL (0.1-1.0); Bun/Creatinine Ratio 19.5 (12.0-20.0); Calcium, Blood 8.7 mg/dL (8.5-10.1); Creatinine, Blood 0.93 mg/dL (0.40-1.00); Globulin, Blood 3.9 g/dL (2.2-4.0); Potassium, Blood 4.3 mmol/L (3.5-5.5)
== END 2023-10-24 12:27 | disposition home or self-care (01) ==
LOC: ATC 03:21
PROVIDERS: Internal Medicine Rheumatology
DX: M05.79 Rheumatoid arthritis with rheumatoid factor of multiple sites without organ or systems involvement (principal); D84.821 Immunodeficiency due to drugs; Z79.899 Other long term (current) drug therapy; M81.0 Age-related osteoporosis without current pathological fracture; M51.36 Other intervertebral disc degeneration, lumbar region; M48.061 Spinal stenosis, lumbar region without neurogenic claudication; M47.816 Spondylosis without myelopathy or radiculopathy, lumbar region; M19.212 Secondary osteoarthritis, left shoulder; M19.211 Secondary osteoarthritis, right shoulder; J84.9 Interstitial pulmonary disease, unspecified; Z79.82 Long term (current) use of aspirin
CPT/HCPCS: 80053; 85025; 85651; 86140; 96413; 96415; J7050; Q5103

== ENCOUNTER 2023-12-19 02:26 | Day surgery (SDC) | payer MEDICARE, OTHER ==
[~2023-12-19] VITALS: Wt 79.0 kg
[2023-12-19 09:30] VITALS: BP 150/61
[2023-12-19] MEDS ORDERED: Infliximab-DYYB 400 MG in NS 250 ML IV SCH (09:30)
== END 2023-12-19 11:57 | disposition home or self-care (01) ==
LOC: ATC 02:26
DX: M05.79 Rheumatoid arthritis with rheumatoid factor of multiple sites without organ or systems involvement (principal); Z79.82 Long term (current) use of aspirin; Z79.899 Other long term (current) drug therapy
CPT/HCPCS: 96413; 96415; J7050; Q5103

== ENCOUNTER 2024-02-13 05:09 | Day surgery (SDC) | payer MEDICARE, OTHER ==
[~2024-02-13] VITALS: Wt 76.5 kg
[~2024-02-13 05:09] MED LIST changes: -CREON DR 6,0001 EACH; -DONE5; -ERGO50000 PO; +Vitamin D1000 UNI1 PO
[2024-02-13 09:11] VITALS: BP 164/93
[2024-02-13] MEDS ORDERED: Infliximab-DYYB 400 MG in NS 250 ML IV SCH (09:20)
[2024-02-13 09:40] VITALS: BP 156/95
[2024-02-14] MEDS ORDERED: MEMANTINE HCL PO (13:23)
[2024-02-14] MEDS ORDERED: ISOSORBIDE MONO60 MG PO (13:24)
[2024-02-15] MEDS ORDERED: ACET500 PO (09:28)
[2024-02-15] MEDS ORDERED: ASPI81CH PO (09:30)
== END 2024-02-13 11:45 | disposition home or self-care (01) ==
LOC: ATC 05:09
DX: M05.79 Rheumatoid arthritis with rheumatoid factor of multiple sites without organ or systems involvement (principal); I25.10 Atherosclerotic heart disease of native coronary artery without angina pectoris; I25.2 Old myocardial infarction; Z79.899 Other long term (current) drug therapy; Z79.890 Hormone replacement therapy; Z79.82 Long term (current) use of aspirin
CPT/HCPCS: 96413; 96415; J7050; Q5103

== ENCOUNTER 2024-03-16 10:13 | Emergency (ER) | payer MEDICARE, OTHER ==
[~2024-03-16] VITALS: Ht 162.6 cm; Wt 75.3 kg
[~2024-03-16 10:13] MED LIST changes: +ACET500 PO; +AMIODARONE HCL200 M1 PO; +ASPI81CH PO; +ELIQUIS5 M2 PO; +ISOSORBIDE MONO60 MG PO; +MEMANTINE HCL PO
[2024-03-16 11:32] LABS: BASOPHILS ABSOLUTE AUTO 0.11 K/mm3 (0.00-0.23); BASOPHILS PERCENT AUTO 1 % (0-2); EOSINOPHILS ABSOLUTE AUTO 0.08 K/mm3 (0.00-0.68); EOSINOPHILS PERCENT AUTO 1 % (0-6); IMMATURE GRAN ABSOLUTE AUTO 0.03 K/mm3 (0.00-0.10); IMMATURE GRAN PERCENT AUTO 0 % (0-1); LYMPHOCYTES ABSOLUTE AUTO 2.11 K/mm3 (0.84-5.20); LYMPHOCYTES PERCENT AUTO 24 % (21-46); MONOCYTES ABSOLUTE AUTO 0.79 K/mm3 (0.16-1.47); MONOCYTES PERCENT AUTO 9 % (4-13); Mean Corpuscular HGB 32.7 pg (26.0-34.0); Mean Corpuscular HGB Conc 31.7 g/dL (31.5-36.5); Mean Corpuscular Volume 103 fL (80-100); Mean Platelet Volume 10.5 fL (9.1-12.4); NEUTROPHILS ABSOLUTE AUTO 5.69 K/mm3 (1.96-9.15); NEUTROPHILS PERCENT AUTO 65 % (41-73); Platelet Count 248 K/mm3 (150-400); RDW Coefficient Variation 14.6 % (11.7-14.2); RDW Standard Deviation 54.4 fL (35.1-46.3); Red Blood Cell Count 3.97 M/mm3 (3.80-5.20); White Blood Cell Count 8.81 K/mm3 (4.00-11.30)
[2024-03-16 11:58] LABS: Albumin/Globulin Ratio 0.6 (0.8-1.8); Bilirubin, Total 0.8 mg/dL (0.1-1.0); Bun/Creatinine Ratio 19.7 (12.0-20.0); Calcium, Blood 9.4 mg/dL (8.5-10.1); Creatinine, Blood 0.86 mg/dL (0.40-1.00); Globulin, Blood 4.7 g/dL (2.2-4.0); Total Protein, Blood 7.7 g/dL (6.4-8.2)
[2024-03-16] MEDS ORDERED: Amoxicillin/Clavulanate K 875 MG Tab PO ONE (15:05)
[2024-03-16] MEDS ORDERED: AMOCLA875 PO (15:10)
[2024-03-16] MEDS ORDERED: DOXY100 PO (15:10)
[2024-03-16] MEDS ORDERED: Doxycycline Hyclate 100 MG TAB PO ONE (15:15)
[2024-03-16 15:25] VITALS: BP 165/80
== END 2024-03-16 15:27 | disposition home or self-care (01) ==
LOC: ER 10:13
PROVIDERS: Physician Assistant
DX: J18.9 Pneumonia, unspecified organism (principal); I13.0 Hypertensive heart and chronic kidney disease with heart failure and stage 1 through stage 4 chronic kidney disease, or unspecified chronic kidney disease; I50.32 Chronic diastolic (congestive) heart failure; N18.30 Chronic kidney disease, stage 3 unspecified; I48.92 Unspecified atrial flutter; I48.91 Unspecified atrial fibrillation; E03.9 Hypothyroidism, unspecified; I25.10 Atherosclerotic heart disease of native coronary artery without angina pectoris; E78.5 Hyperlipidemia, unspecified; M06.9 Rheumatoid arthritis, unspecified; M81.0 Age-related osteoporosis without current pathological fracture; G47.33 Obstructive sleep apnea (adult) (pediatric); Z88.6 Allergy status to analgesic agent; Z79.01 Long term (current) use of anticoagulants; Z79.890 Hormone replacement therapy; Z79.899 Other long term (current) drug therapy
CPT/HCPCS: 71046; 80053; 85025; 93005; 93010; 99284-25; A9270

== ENCOUNTER 2024-03-26 08:46 | Inpatient (IN) | payer MEDICARE, OTHER ==
[~2024-03-26] VITALS: Ht 162.6 cm; Wt 70.4 kg
[~2024-03-26 08:46] MED LIST changes: +AMOCLA875 PO
[2024-03-26 09:44] LABS: BASOPHILS ABSOLUTE AUTO 0.09 K/mm3 (0.00-0.23); BASOPHILS PERCENT AUTO 1 % (0-2); EOSINOPHILS ABSOLUTE AUTO 0.34 K/mm3 (0.00-0.68); EOSINOPHILS PERCENT AUTO 4 % (0-6); Hematocrit 35.4 % (33.0-51.0); Hemoglobin 11.5 g/dL (11.5-16.0); IMMATURE GRAN ABSOLUTE AUTO 0.04 K/mm3 (0.00-0.10); IMMATURE GRAN PERCENT AUTO 1 % (0-1); LYMPHOCYTES PERCENT AUTO 34 % (21-46); MONOCYTES ABSOLUTE AUTO 0.94 K/mm3 (0.16-1.47); MONOCYTES PERCENT AUTO 11 % (4-13); Mean Corpuscular HGB 32.1 pg (26.0-34.0); Mean Corpuscular HGB Conc 32.5 g/dL (31.5-36.5); Mean Corpuscular Volume 99 fL (80-100); Mean Platelet Volume 10.1 fL (9.1-12.4); NEUTROPHILS PERCENT AUTO 49 % (41-73); Platelet Count 323 K/mm3 (150-400); RDW Coefficient Variation 14.2 % (11.7-14.2); RDW Standard Deviation 51.4 fL (35.1-46.3); Red Blood Cell Count 3.58 M/mm3 (3.80-5.20); White Blood Cell Count 8.21 K/mm3 (4.00-11.30)
[2024-03-26 10:06] LABS: Albumin, Blood 2.6 g/dL (3.4-5.0); Albumin/Globulin Ratio 0.6 (0.8-1.8); Bilirubin, Total 0.6 mg/dL (0.1-1.0); Bun/Creatinine Ratio 24.7 (12.0-20.0); Calcium, Blood 9.1 mg/dL (8.5-10.1); Creatinine, Blood 0.81 mg/dL (0.40-1.00); Potassium, Blood 3.8 mmol/L (3.5-5.5); Total Protein, Blood 6.6 g/dL (6.4-8.2)
[2024-03-26 15:12] LABS: Adenovirus Not Detected (NOT DETECT); Coronavirus 229E Not Detected (NOT DETECT); Coronavirus HKU1 Not Detected (NOT DETECT); Coronavirus NL63 Not Detected (NOT DETECT); Coronavirus OC43 Not Detected (NOT DETECT); Human Metapneumovirus Not Detected (NOT DETECT); Human Rhinovirus/Enterovirus Not Detected (NOT DETECT); Influenza A/H1 Not Detected (NOT DETECT); Influenza A/H3 Not Detected (NOT DETECT); SARS-Cov-2 (COVID-19), BioFire Not Detected (NOT DETECT)
[2024-03-26] MEDS ORDERED: VISBIOME PO (15:12)
[2024-03-26 15:13] LABS: Bordetella pertussis Not Detected (NOT DETECT); Chlamydophila pneumoniae Not Detected (NOT DETECT); Influenza A/2009-H1 Not Detected (NOT DETECT); Influenza B Not Detected (NOT DETECT); Mycoplasma pneumoniae Not Detected (NOT DETECT); Parainfluenza Virus 1 Not Detected (NOT DETECT); Parainfluenza Virus 2 Not Detected (NOT DETECT); Parainfluenza Virus 3 Not Detected (NOT DETECT); Parainfluenza Virus 4 Not Detected (NOT DETECT); Respiratory Syncytial Virus Not Detected (NOT DETECT)
[2024-03-26] MEDS ORDERED: ACETAMINOPHEN500 M2 PO (15:13)
[2024-03-26] MEDS ORDERED: AMIODARONE HCL200 M1 PO (15:14)
[2024-03-26] MEDS ORDERED: Acetaminophen 500 MG Tab PO PRN (15:15)
[2024-03-26] MEDS ORDERED: ELIQUIS5 M2 PO (15:15)
[2024-03-26] MEDS ORDERED: ATORVASTATIN CA80 M1 PO (15:16)
[2024-03-26] MEDS ORDERED: CYMBALTA60 M1 PO (15:18)
[2024-03-26] MEDS ORDERED: GABA300 PO (15:19)
[2024-03-26] MEDS ORDERED: FLU VACC TS2024-25(6MOS UP)/PF 45 MCG/0.5 ML SYRINGE IM PRN (15:20)
[2024-03-26] MEDS ORDERED: ARAVA10 M1 PO (15:20)
[2024-03-26] MEDS ORDERED: SYNTHROID150 MC1 PO (15:21)
[2024-03-26] MEDS ORDERED: ZESTRIL40 M1 PO (15:22)
[2024-03-26] MEDS ORDERED: MEMA10 PO (15:23)
[2024-03-26] MEDS ORDERED: METO50ER PO (15:24)
[2024-03-26] MEDS ORDERED: ALDACTONE25 MG PO (15:25)
[2024-03-26] MEDS ORDERED: Vitamin D PO (15:26)
[2024-03-26] MEDS ORDERED: ZOLEDRONIC4 MG/514 IV (15:43)
[2024-03-26] MEDS ORDERED: RENFLEXIS100 M1 (15:43)
[2024-03-26] MEDS ORDERED: CefTRIAXone Sodium 1,000 MG in NS 100 ML IV SCH (17:00)
[2024-03-26 17:38] VITALS: BP 157/105
[2024-03-26] MEDS ORDERED: Spironolactone 25 MG Tab PO SCH (18:00)
--- NOTE | 2024-03-26 18:04 | NUR ---
PT ARRIVED TO ROOM AT 1736. PT ABLE TO INDEPENDENTLY TRANSFER TO BED. PT DOES STATE SHE FEELS TIRED. PT AOX4 AND COOPERATIVE OF CARE. PT CURRENTLY SITTING IN BED EATING DINNER. CALL LIGHT WITHIN REACH WILL CONTINUE TO MONITOR. PT IS TO BE NPO AT MIDNIGHT FOR POSSIBLE BRONCOSCOPY TOMORROW PER DR ALDANA.
[2024-03-26] MEDS ORDERED: NS 250 ML IV PRN (18:20)
[2024-03-26 19:51] VITALS: BP 153/106
[2024-03-26] MEDS ORDERED: Metoprolol Succinate 50 MG TABCR PO SCH (21:00)
[2024-03-26] MEDS ORDERED: Gabapentin 300 MG Cap PO SCH (21:00)
[2024-03-26] MEDS ORDERED: Cholecalciferol 1000 Unit Tablet (=25MCG) PO SCH (21:00)
[2024-03-26] MEDS ORDERED: Memantine HCL 5 MG Tab PO SCH (21:00)
[2024-03-26] MEDS ORDERED: Lactobacil 2-S.Thermo-Bifido 1 1 Cap PO SCH (21:00)
[2024-03-26] MEDS ORDERED: DULoxetine HCL 60 MG Capsule DR PO SCH (21:00)
[2024-03-26] MEDS ORDERED: Atorvastatin 10 MG Tab PO SCH (21:00)
[2024-03-26] MEDS ORDERED: Lisinopril 20 MG Tab PO SCH (21:00)
[2024-03-26] MEDS ORDERED: Apixaban 5 MG Tab PO SCH (21:00)
[2024-03-27 04:35] VITALS: BP 151/99
[2024-03-27 05:50] LABS: BASOPHILS ABSOLUTE AUTO 0.12 K/mm3 (0.00-0.23); BASOPHILS PERCENT AUTO 2 % (0-2); EOSINOPHILS ABSOLUTE AUTO 0.29 K/mm3 (0.00-0.68); EOSINOPHILS PERCENT AUTO 4 % (0-6); Hematocrit 39.8 % (33.0-51.0); Hemoglobin 12.7 g/dL (11.5-16.0); IMMATURE GRAN ABSOLUTE AUTO 0.04 K/mm3 (0.00-0.10); IMMATURE GRAN PERCENT AUTO 1 % (0-1); LYMPHOCYTES ABSOLUTE AUTO 2.83 K/mm3 (0.84-5.20); LYMPHOCYTES PERCENT AUTO 35 % (21-46); MONOCYTES ABSOLUTE AUTO 0.78 K/mm3 (0.16-1.47); MONOCYTES PERCENT AUTO 10 % (4-13); Mean Corpuscular HGB 31.8 pg (26.0-34.0); Mean Corpuscular HGB Conc 31.9 g/dL (31.5-36.5); Mean Corpuscular Volume 100 fL (80-100); Mean Platelet Volume 10.6 fL (9.1-12.4); NEUTROPHILS ABSOLUTE AUTO 4.06 K/mm3 (1.96-9.15); NEUTROPHILS PERCENT AUTO 50 % (41-73); Platelet Count 337 K/mm3 (150-400); RDW Coefficient Variation 14.4 % (11.7-14.2); RDW Standard Deviation 51.9 fL (35.1-46.3); Red Blood Cell Count 3.99 M/mm3 (3.80-5.20); White Blood Cell Count 8.12 K/mm3 (4.00-11.30)
[2024-03-27] MEDS ORDERED: Levothyroxine Sodium 0.15 MG Tab PO SCH (06:00)
--- NOTE | 2024-03-27 06:06 | NUR ---
AAO X4. SBA X1 WITH WALKER. USES CALL LIGHT FOR NEEDS. STRESS/URGENCY URINE INCONTINENCE. ROCEPHIN FOR PNU. NO ACUTE NEEDS OVER THE NIGHT, SLEPT WELL.NPO @ MIDNIGHT FOR BROCHOSCOPY.
[2024-03-27 06:18] LABS: Bun/Creatinine Ratio 20.5 (12.0-20.0); Calcium, Blood 9.5 mg/dL (8.5-10.1); Creatinine, Blood 0.83 mg/dL (0.40-1.00)
[2024-03-27] MEDS ORDERED: buPROPion HCL 150 MG TAB.SR.12H PO SCH (08:00)
[2024-03-27 08:05] VITALS: BP 163/106
[2024-03-27 08:06] VITALS: BP 148/94
[2024-03-27] MEDS ORDERED: Leflunomide 20 MG Tab PO SCH (09:00)
[2024-03-27] MEDS ORDERED: Amiodarone HCl 200 MG Tab PO SCH (09:00)
[2024-03-27] MEDS ORDERED: Ondansetron 4 MG SoluTab SL PRN (11:15)
--- NOTE | 2024-03-27 11:39 | NUR ---
WALK TEST DONE, PATIENT WALKED IN THE CALL WITH OXIMETRY MONITOR ON. WAS SATTING 96% ON ROOM AIR AT REST. LOWEST READING WHILE UP AND AMBULATING WAS 93% PATIENT DID GET SLIGHLTY SHORT OF BREATH BUT WALKED APPROXIMATEY [address] FE[address]. RETURNED TO BED. DR. FELIX UPDATED ON WHAT PULMONOLOGY CANCELLING BRONCHOSCOPY, REPEAT CHEST X-RAY.
[2024-03-27 13:59] VITALS: BP 138/96
--- NOTE | 2024-03-27 15:55 | NUR ---
SHIFT SUMMARY PATIENT WAS NPO AT START OF SHIFT PENDING POSSIBLE BRONCHOSCOPY. DIRECTOR OF PHYSICIAN PRACTICES CAME BY AND CANCELLED BRONCHOSCOPY, ORDERED A CHEST X-RAY AND BNP. DR. FELIX UPDATED, STATED PATIENT LIKELY TO D/C TOMORROW. PATIENT WAS ALSO FEELING NAUSEAS WITH AM MEDS, DR. FELIX ORDERED PRN CANDYFRAMBER ODT, PATINET REPORTED RELIEF. ABLE TO MAKE NEEDS KNOWN. CALL LIGHT IN REACH. BED LOCKED IN LOW POSITION. NONSKID SOCKS ON . STAND-BY ASSIST WITH FWW. SOB WITH EXERTION.
[2024-03-27 16:02] VITALS: BP 132/94
[2024-03-27 19:45] VITALS: BP 136/85
[2024-03-28 04:48] VITALS: BP 146/93
[2024-03-28 07:49] VITALS: BP 144/95
[2024-03-28] MEDS ORDERED: Furosemide 10 MG/ML 4ML Vial IV SCH (09:00)
[2024-03-28 15:13] VITALS: BP 126/94
--- NOTE | 2024-03-28 18:47 | NUR ---
SHIFT SUMMARY PATIENT A/OX4, ABLE TO MAKE NEEDS KNOWN. PLEASANT AND COOPERATIVE WITH CARE. AT BEDSIDE MOST OF SHIFT. PATIENT CONTINUES WITH DIURETICS PER MAR. VOIDING FREQUENTLY AND COMPLAINING OF URGENCY AND FREQUENCY. ABLE TO GET UP IN THE RECLINER FOR MEALS. PLAN TO DISCHARGE HOME TOMORROW. NO OTHER CONCERNS AT THIS TIME.
[2024-03-28 20:08] VITALS: BP 129/112
[2024-03-29 04:03] VITALS: BP 136/95
--- NOTE | 2024-03-29 04:16 | NUR ---
MANAGER OPERATIONS AND PROCUREMENT SUMMARY PT A/OX4 WITH SOME FORGETFULNESS. PT ABLE TO MAKE NEEDS KNOWN. PLEASANT AND COOPERATIVE. DURING INTITAL ASSESSMENT AT BEGINNING OF SHIFT PT REPORTING TINGLING DISCOMFORT ON HER TONGUE AT DINNER TIME WITH BRIGHT RED DISCOLORATION. JR APPEARED TO BE BRIGHT RED, SLIGHTLY SWOLLEN, "BEEFY' WITH SMOOTH TEXTURE. PT DENIED SOB, DIFFICULTY SWALLOWING. PLACED CALL TO HOSPITALIST AT 2052; NO NEW ORDERS. HOSPITALIST ADVISED TO REPORT ANY CONCERNING CHANGES WITH PLAN TO COME TO PT BEDSIDE TO ASSESS LATER IN SHIFT. DR ALCALA AT BEDSIDE AT 2154--ASSESSED PT AND OBSERVED TONGUE. DR ALCALA DID NOT FEEL IT WAS A CONCERN AT THIS TIME. INSTRUCTED TO CALL IF S/S WORSENED. PT MILDLY RESTLESS INTERMITTANTLY T/O THE NIGHT. PT DENIES SOB OR DIFFICULTY SWALOWING. PT STATED TINGLING IN TONGUE RESOLVED. CALL LIGHT ACCESSIBLE AND BED ALARM IN PLACE T/O THE NIGHT. REGULAR INTERVAL ROUNDING COMPLETE. WCTM UNTIL REPORT GIVEN TO ONCOMING NURSE.
[2024-03-29 05:43] LABS: BASOPHILS ABSOLUTE AUTO 0.13 K/mm3 (0.00-0.23); BASOPHILS PERCENT AUTO 2 % (0-2); EOSINOPHILS ABSOLUTE AUTO 0.43 K/mm3 (0.00-0.68); EOSINOPHILS PERCENT AUTO 5 % (0-6); Hematocrit 38.9 % (33.0-51.0); Hemoglobin 12.6 g/dL (11.5-16.0); IMMATURE GRAN ABSOLUTE AUTO 0.03 K/mm3 (0.00-0.10); IMMATURE GRAN PERCENT AUTO 0 % (0-1); LYMPHOCYTES ABSOLUTE AUTO 2.87 K/mm3 (0.84-5.20); LYMPHOCYTES PERCENT AUTO 32 % (21-46); MONOCYTES ABSOLUTE AUTO 0.99 K/mm3 (0.16-1.47); MONOCYTES PERCENT AUTO 11 % (4-13); Mean Corpuscular HGB 32.1 pg (26.0-34.0); Mean Corpuscular HGB Conc 32.4 g/dL (31.5-36.5); Mean Corpuscular Volume 99 fL (80-100); Mean Platelet Volume 10.5 fL (9.1-12.4); NEUTROPHILS ABSOLUTE AUTO 4.49 K/mm3 (1.96-9.15); NEUTROPHILS PERCENT AUTO 50 % (41-73); Platelet Count 309 K/mm3 (150-400); RDW Coefficient Variation 14.4 % (11.7-14.2); RDW Standard Deviation 51.7 fL (35.1-46.3); Red Blood Cell Count 3.93 M/mm3 (3.80-5.20); White Blood Cell Count 8.94 K/mm3 (4.00-11.30)
[2024-03-29 06:18] LABS: Bun/Creatinine Ratio 21.9 (12.0-20.0); Calcium, Blood 9.3 mg/dL (8.5-10.1); Creatinine, Blood 0.96 mg/dL (0.40-1.00); Potassium, Blood 3.4 mmol/L (3.5-5.5)
[2024-03-29 07:25] VITALS: BP 147/91
[2024-03-29] MEDS ORDERED: LEVSOD150 PO (14:32)
[2024-03-29] MEDS ORDERED: FURO40 PO (14:32)
--- NOTE | 2024-03-29 15:00 | NUR ---
DISCHARGE NOTE PATIENT A/OX4, ABLE TO MAKE NEEDS KNOWN. DAUGHTER AND SPOUSE AT BEDSIDE THROUGHOUT THE SHIFT. PATIENT ABLE TO WALK THROUGHOUT HALLS THIS SHIFT WITH STAND BY ASSISTANCE. PIV REMOVED PRIOR TO DISCHARGE. MEDICATIONS FAXED TO [facility] PER PATIENT REQUEST. DSICHARGE MEDS AND FOLLOW UP APPOINTMENTS DISCUSSED WITH PATIENT AND FAMILY. ALL QUESTIONS ANSWERED AT TIME OF DISCHARGE. NO OTHER CONCERNS. PATIENT ASSISTED TO FAMILY VEHICLE VIA WHEELCHAIR THIS EVENING.
== END 2024-03-29 16:05 | disposition home or self-care (01) | DRG 193 ==
LOC: ER 08:46 → MEDS 15:13 → ENPENDDIS 03-29 15:55 → MEDS 03-29 16:05
PROVIDERS: Emergency Medicine; Internal Medicine; ADMIT Student in an Organized Health Care Education/Training Program
DX: J18.9 Pneumonia, unspecified organism (principal); I50.43 Acute on chronic combined systolic (congestive) and diastolic (congestive) heart failure; I13.0 Hypertensive heart and chronic kidney disease with heart failure and stage 1 through stage 4 chronic kidney disease, or unspecified chronic kidney disease; Z66 Do not resuscitate; E03.9 Hypothyroidism, unspecified; N18.30 Chronic kidney disease, stage 3 unspecified; I25.10 Atherosclerotic heart disease of native coronary artery without angina pectoris; E78.5 Hyperlipidemia, unspecified; G47.33 Obstructive sleep apnea (adult) (pediatric); I73.9 Peripheral vascular disease, unspecified; M06.9 Rheumatoid arthritis, unspecified; I48.91 Unspecified atrial fibrillation; E66.9 Obesity, unspecified; Z68.28 Body mass index [BMI] 28.0-28.9, adult; F32.9 Major depressive disorder, single episode, unspecified; M35.00 Sjogren syndrome, unspecified; I25.2 Old myocardial infarction; Z88.8 Allergy status to other drugs, medicaments and biological substances; Z79.899 Other long term (current) drug therapy; Z79.01 Long term (current) use of anticoagulants; Z79.890 Hormone replacement therapy; Z98.42 Cataract extraction status, left eye; Z98.41 Cataract extraction status, right eye; Z95.5 Presence of coronary angioplasty implant and graft; Z90.49 Acquired absence of other specified parts of digestive tract
CPT/HCPCS: 0202U; 36415; 71045; 71046; 71260; 80048; 80053; 83880; 84145; 84484; 85025; 85379; 93005; 93010; 93970; 99285-25; A9270; J0696; J1940; J7050; Q9967

== ENCOUNTER → 2024-04-21 | Outpatient (CLI) | payer MEDICARE, OTHER ==
[~2024-04-21] MED LIST changes: +ACETAMINOPHEN500 M2 PO; +ALDACTONE25 MG PO; +ARAVA10 M1 PO; +ATORVASTATIN CA80 M1 PO; +CYMBALTA60 M1 PO; +FURO40 PO; +LEVSOD150 PO; +METO50ER PO; +RENFLEXIS100 M1; +SYNTHROID150 MC1 PO; +VISBIOME PO; +Vitamin D PO; +ZESTRIL40 M1 PO; +ZOLEDRONIC4 MG/514 IV
[2024-04-21 12:02] LABS: BASOPHILS PERCENT AUTO 1 % (0-2); EOSINOPHILS ABSOLUTE AUTO 0.25 K/mm3 (0.00-0.68); EOSINOPHILS PERCENT AUTO 3 % (0-6); Hematocrit 42.6 % (33.0-51.0); IMMATURE GRAN ABSOLUTE AUTO 0.03 K/mm3 (0.00-0.10); IMMATURE GRAN PERCENT AUTO 0 % (0-1); LYMPHOCYTES ABSOLUTE AUTO 2.46 K/mm3 (0.84-5.20); LYMPHOCYTES PERCENT AUTO 26 % (21-46); MONOCYTES PERCENT AUTO 12 % (4-13); Mean Corpuscular HGB 31.5 pg (26.0-34.0); Mean Corpuscular HGB Conc 32.9 g/dL (31.5-36.5); Mean Corpuscular Volume 96 fL (80-100); Mean Platelet Volume 11.2 fL (9.1-12.4); NEUTROPHILS ABSOLUTE AUTO 5.47 K/mm3 (1.96-9.15); NEUTROPHILS PERCENT AUTO 58 % (41-73); Platelet Count 234 K/mm3 (150-400); RDW Coefficient Variation 14.6 % (11.7-14.2); RDW Standard Deviation 50.5 fL (35.1-46.3); Red Blood Cell Count 4.44 M/mm3 (3.80-5.20); White Blood Cell Count 9.41 K/mm3 (4.00-11.30)
[2024-04-21 12:10] LABS: Albumin, Blood 3.2 g/dL (3.4-5.0); Albumin/Globulin Ratio 0.7 (0.8-1.8); Bilirubin, Total 0.6 mg/dL (0.1-1.0); Bun/Creatinine Ratio 18.6 (12.0-20.0); Calcium, Blood 9.5 mg/dL (8.5-10.1); Creatinine, Blood 1.67 mg/dL (0.40-1.00); Globulin, Blood 4.5 g/dL (2.2-4.0); Magnesium, Blood 1.5 mg/dL (1.6-2.4); Potassium, Blood 3.5 mmol/L (3.5-5.5); Total Protein, Blood 7.7 g/dL (6.4-8.2)
== END | disposition home or self-care (01) ==
LOC: LAB 11:57 → LAB SHORT 11:57
PROVIDERS: Chiropractor
DX: R10.32 Left lower quadrant pain (principal)
CPT/HCPCS: 80053; 83735; 85025

== ENCOUNTER → 2024-04-23 | Outpatient (CLI) | payer MEDICARE, OTHER ==
[2024-04-23 12:47] LABS: Adenovirus F 40/41 Not Detected (NOT DETECT); Astrovirus Not Detected (NOT DETECT); Campylobacter Sp Not Detected (NOT DETECT); Cryptosporidium Not Detected (NOT DETECT); Cyclospora Cayetanensis Not Detected (NOT DETECT); E. Coli O157 Not Detected (NOT DETECT); Entamoeba Histolytica Not Detected (NOT DETECT); Enteroaggregative E. coli-EAEC Not Detected (NOT DETECT); Enteropathogenic E. coli-EPEC Not Detected (NOT DETECT); Enterotoxigenic E. coli-ETEC Not Detected (NOT DETECT); Giardia Lamblia Not Detected (NOT DETECT); Norovirus GI/GII Not Detected (NOT DETECT); Plesiomonas Shigelloides Not Detected (NOT DETECT); Rotavirus A Not Detected (NOT DETECT); Salmonella Sp Not Detected (NOT DETECT); Sapovirus Not Detected (NOT DETECT); Shiga Toxin-prod E. coli-STEC Not Detected (NOT DETECT); Shigella/Enteroin E. coli-EIEC Not Detected (NOT DETECT); Vibrio Cholerae Not Detected (NOT DETECT); Vibrio Sp Not Detected (NOT DETECT); Yersinia Enterocolitica Not Detected (NOT DETECT)
== END ==
LOC: LAB 05:55 → LAB SHORT 05:55
PROVIDERS: Chiropractor
DX: R19.7 Diarrhea, unspecified (principal)
CPT/HCPCS: 87507

== ENCOUNTER 2024-05-25 01:18 | Inpatient (IN) | payer MEDICARE, OTHER ==
[~2024-05-25] VITALS: Ht 170.2 cm; Wt 65.5 kg
[2024-05-25 02:10] LABS: BASOPHILS ABSOLUTE AUTO 0.06 K/mm3 (0.00-0.23); BASOPHILS PERCENT AUTO 1 % (0-2); EOSINOPHILS PERCENT AUTO 0 % (0-6); Hematocrit 38.6 % (33.0-51.0); Hemoglobin 12.2 g/dL (11.5-16.0); IMMATURE GRAN PERCENT AUTO 1 % (0-1); LYMPHOCYTES PERCENT AUTO 29 % (21-46); MONOCYTES ABSOLUTE AUTO 0.57 K/mm3 (0.16-1.47); MONOCYTES PERCENT AUTO 6 % (4-13); Mean Corpuscular HGB 32.4 pg (26.0-34.0); Mean Corpuscular HGB Conc 31.6 g/dL (31.5-36.5); Mean Corpuscular Volume 102 fL (80-100); Mean Platelet Volume 11.1 fL (9.1-12.4); NEUTROPHILS ABSOLUTE AUTO 6.34 K/mm3 (1.96-9.15); NEUTROPHILS PERCENT AUTO 64 % (41-73); NRBC ABSOLUTE 0.06 K/mm3 (0.00-0.02); NRBC Auto 0.6 /100 WBC (0.0-0.2); Platelet Count 277 K/mm3 (150-400); RDW Coefficient Variation 17.2 % (11.7-14.2); RDW Standard Deviation 63.7 fL (35.1-46.3); Red Blood Cell Count 3.77 M/mm3 (3.80-5.20); White Blood Cell Count 9.97 K/mm3 (4.00-11.30)
[2024-05-25 02:40] LABS: Albumin, Blood 2.8 g/dL (3.4-5.0); Albumin/Globulin Ratio 0.6 (0.8-1.8); Bilirubin, Total 1.4 mg/dL (0.1-1.0); Bun/Creatinine Ratio 19.2 (12.0-20.0); Creatinine, Blood 1.2 mg/dL (0.40-1.00); Globulin, Blood 4.4 g/dL (2.2-4.0); Potassium, Blood 6.1 mmol/L (3.5-5.5); Total Protein, Blood 7.2 g/dL (6.4-8.2)
[2024-05-25 02:48] LABS: Base Excess Venous -11.6 mmol/L; Bicarbonate Venous 15.8 mmol/L (24.0-30.0); PCO2 Venous 38.6 mmHg (38-42)
[2024-05-25 02:49] LABS: pH Blood Venous 7.23 (7.34-7.37)
[2024-05-25 02:53] LABS: Influenza B, PCR NEGATIVE (NEGATIVE); Resp Syncytial Virus, PCR NEGATIVE (NEGATIVE); SARS-Cov-2 (COVID-19) PCR, MMC NEGATIVE (NEGATIVE)
[2024-05-25] MEDS ORDERED: Dextrose 50% 50 ML Syringe IV ONE ×3 (02:55→05:40)
[2024-05-25] MEDS ORDERED: Dextrose 50% 50 ML Vial IV ONE (03:00)
[2024-05-25] MEDS ORDERED: Oseltamivir Phosphate 75 MG Cap PO ONE (03:05)
[2024-05-25 04:02] LABS: Magnesium, Blood 2.4 mg/dL (1.6-2.4); Phosphorus, Blood 5.4 mg/dL (2.5-4.9)
[2024-05-25] MEDS ORDERED: CefTRIAXone Sodium 2,000 MG in NS 100 ML IV ONE (05:00)
[2024-05-25] MEDS ORDERED: NS 1,000 ML IV SCH ×2 (05:00→06:35)
[2024-05-25] MEDS ORDERED: Vancomycin HCL 1,250 MG in NS 250 ML IV ONE (05:00)
[2024-05-25] MEDS ORDERED: Calcium Gluconate 10% 100 MG/ML INJ IV ONE (05:10)
[2024-05-25] MEDS ORDERED: Insulin Regular 100 Unit/ML 1ML Dose IV ONE (05:10)
[2024-05-25] MEDS ORDERED: Albuterol 2.5 MG/3 ML VIAL INH SCH (05:10)
[2024-05-25] MEDS ORDERED: Dextrose 50% 50 ML Vial ONE (05:29)
[2024-05-25] MEDS ORDERED: FLU VACC TS2024-25(6MOS UP)/PF 45 MCG/0.5 ML SYRINGE IM SCH (07:20)
[2024-05-25 07:48] LABS: Bun/Creatinine Ratio 21.2 (12.0-20.0); Calcium, Blood 8.2 mg/dL (8.5-10.1); Creatinine, Blood 1.18 mg/dL (0.40-1.00); Potassium, Blood 4.9 mmol/L (3.5-5.5)
[2024-05-25] MEDS ORDERED: Azithromycin 500 MG in NS 250 ML IV SCH (09:00)
[2024-05-25] MEDS ORDERED: Lactobacil 2-S.Thermo-Bifido 1 1 Cap PO SCH (09:00)
[2024-05-25] MEDS ORDERED: Lactated Ringer's 1,000 ML IV SCH ×2 (14:05→16:15)
[2024-05-25 16:05] VITALS: BP 146/109
[2024-05-25] MEDS ORDERED: Albuterol 2.5 MG/3 ML VIAL INH PRN (16:05)
[2024-05-25 17:00] LABS: Base Excess Venous -7.2 mmol/L; Bicarbonate Venous 18.2 mmol/L (24.0-30.0); PCO2 Venous 50.9 mmHg (38-42); pH Blood Venous 7.21 (7.34-7.37)
[2024-05-25 17:16] LABS: International Normalized Ratio 2.61
--- NOTE | 2024-05-25 18:14 | NUR ---
SHIFT SUMMARY PT REMAINS ALERT AND ORIENTED TO SELF, PLACE, AND DATE. PT FORGETFUL ABOUT SITUATION AT TIMES. PT HAS SLURRED SPEECH AT TIMES AND DIFFICULTY FINDING WORDS. PROFESSIONAL ENGINEER WEAK, BUT EQUAL BILATERALLY. SKIN IS MOTTLED FROM BOTH LOWER EXTREMITIES UP TO CHEST AND BUE. CAP REFILL GREATER THAN 3 SECONDS. LEFT PUPIL LARGER THAN RIGHT. DR. LOPEZ NOTIFIED OF ASSESSMENT FINDINGS. PT NOW NPO AWAITING ST EVALUATION. PUREWICK DEVICE IN PLACE FOR INCONTINENCE. PT REPOSITIONED Q2H SINCE ADMISSION. SPOUSE AT BEDSIDE. DR. LOPEZ AT BEDSIDE TO UPDATE SPOUSE ON HOW SERIOUS PT'S CONDITION IS. WILL REPORT OFF TO ONCOMING RN
[2024-05-25 20:00] VITALS: BP 146/99; BP 246/99
[2024-05-25] MEDS ORDERED: Apixaban 5 MG Tab PO SCH (21:00)
[2024-05-25] MEDS ORDERED: Metoprolol Succinate 50 MG TABCR PO SCH (21:00)
[2024-05-25] MEDS ORDERED: Cholecalciferol 1000 Unit Tablet (=25MCG) PO SCH (21:00)
[2024-05-25] MEDS ORDERED: Oseltamvir Phosphate 30 MG Cap PO SCH (21:00)
--- NOTE | 2024-05-25 22:27 | NUR ---
PT EXTREMLY AGITATED AND TRYING TO CLIMB OUT OF BED. CHARGE NURSE NOTIFIED AND DR. GRIFFIN CALLED, STATES HE WILL PLACE ORDERS
[2024-05-25] MEDS ORDERED: LORazepam 2 MG/ML 1ML Injection IV PRN (23:00)
--- NOTE | 2024-05-25 23:20 | NUR ---
PT REFUSING TO ALLOW C-COLLAR TO STAY ON, PT THRASING AROUND AND ATTEMPTING TO REMOVE , UNABLE TO EDUCATE PT. C-COLLAR REMOVED FOR PT SAFETY. PRN, ATIVAN GIVEN PER ORDER. WILL CONTINUE TO MONITOR. BED ALARM IN PLACE
[2024-05-25 23:52] VITALS: BP 154/80
[2024-05-26] VITALS (7 sets, daily range): BP systolic 123–178; BP diastolic 56–79
[2024-05-26 04:48] LABS: BASOPHILS ABSOLUTE AUTO 0.06 K/mm3 (0.00-0.23); BASOPHILS PERCENT AUTO 1 % (0-2); Hematocrit 38.4 % (33.0-51.0); Hemoglobin 11.9 g/dL (11.5-16.0); LYMPHOCYTES ABSOLUTE AUTO 0.96 K/mm3 (0.84-5.20); LYMPHOCYTES PERCENT AUTO 8 % (21-46); MONOCYTES ABSOLUTE AUTO 0.57 K/mm3 (0.16-1.47); MONOCYTES PERCENT AUTO 5 % (4-13); Mean Corpuscular Volume 106 fL (80-100); NRBC ABSOLUTE 0.15 K/mm3 (0.00-0.02); NRBC Auto 1.2 /100 WBC (0.0-0.2); RDW Coefficient Variation 17.2 % (11.7-14.2); RDW Standard Deviation 66.4 fL (35.1-46.3); Red Blood Cell Count 3.61 M/mm3 (3.80-5.20); White Blood Cell Count 12.32 K/mm3 (4.00-11.30)
[2024-05-26 04:49] LABS: EOSINOPHILS ABSOLUTE AUTO 1.02 K/mm3 (0.00-0.68); EOSINOPHILS PERCENT AUTO 8 % (0-6); IMMATURE GRAN ABSOLUTE AUTO 0.24 K/mm3 (0.00-0.10); IMMATURE GRAN PERCENT AUTO 2 % (0-1); Mean Platelet Volume 11.2 fL (9.1-12.4); NEUTROPHILS ABSOLUTE AUTO 9.47 K/mm3 (1.96-9.15); NEUTROPHILS PERCENT AUTO 77 % (41-73); Platelet Count 214 K/mm3 (150-400)
--- NOTE | 2024-05-26 05:32 | NUR ---
PT RESTED COMFORTABLEY AFTER PRN ATIVAN, SITTER AT BEDSIDE. PT REMAINS DISORIENTED EXCEPT TO NAME, SPEECH SOFT AND SLURRED. PUPILS REMAIN UNEQUAL BUT REACTIVE. SKIN INTACT.PT REMAINS NPO, MOUTH CARE GIVEN Q2H AND PRN BED ALARM IN PLACE, WILL CONTINUE TO MONITOR
[2024-05-26] MEDS ORDERED: Levothyroxine Sodium 0.15 MG Tab PO SCH (06:00)
[2024-05-26] MEDS ORDERED: CefTRIAXone Sodium 1,000 MG in NS 100 ML IV SCH (06:00)
[2024-05-26] MEDS ORDERED: Dextrose 50% 50 ML Syringe ONE (06:38)
[2024-05-26] MEDS ORDERED: Dextrose 50% 50 ML Syringe IV ONE ×2 (06:50→14:20)
--- NOTE | 2024-05-26 06:53 | NUR ---
RECEIVED CALL FROM LAB,STATING THEY ARE REDRAWING PTS LAB DUE TO GLUCOSE OF 22, FINGER STICK REVEALS BLOOD SUGAR OF 19, ATTEMPTS TO CALL DR. GRIFFIN UNSUCCESSFUL. DR. MORALES NOTIFIED, PT GIVEN 1 AMP OF D50 PER PROTOCOL. PT ALERT TO NAME, PLACE, STATING SHE IS NOT A DIABETIC. T 98.5 TEMPORTAL, HR 84, RESP 22, B/P 137/60 (MAP OF 82), O2 SAT 96 ON 2 LITERS. PT SHOWING NO S/S OF HYPOGLYEMIA. WILL CONTINUE TO MONITOR
[2024-05-26 08:06] LABS: Albumin, Blood 2.3 g/dL (3.4-5.0); Albumin/Globulin Ratio 0.7 (0.8-1.8); Bilirubin, Total 1.4 mg/dL (0.1-1.0); Bun/Creatinine Ratio 20.6 (12.0-20.0); Calcium, Blood 8.2 mg/dL (8.5-10.1); Creatinine, Blood 1.31 mg/dL (0.40-1.00); Globulin, Blood 3.5 g/dL (2.2-4.0); Potassium, Blood 5.2 mmol/L (3.5-5.5); Total Protein, Blood 5.8 g/dL (6.4-8.2)
[2024-05-26] MEDS ORDERED: Amiodarone HCl 200 MG Tab PO SCH (09:00)
[2024-05-26] MEDS ORDERED: D5W-1/2NS 1,000 ML IV SCH (09:40)
[2024-05-26 12:21] LABS: International Normalized Ratio 3.73; Prothrombin Time Results 36.2 Sec (9.7-11.5)
[2024-05-26] MEDS ORDERED: FentaNYL Citrate 50 MCG/ML 2 ML Injection IV PRN (14:20)
[2024-05-26] MEDS ORDERED: Lactulose 20 GM/30 ML UDC PO SCH (17:00)
[2024-05-26] MEDS ORDERED: Dextrose 50% 50 ML Syringe IV PRN (17:10)
[2024-05-26] MEDS ORDERED: Dextrose 10% 1,000 ML IV SCH (20:30)
[2024-05-26 20:59] LABS: Base Excess Venous -6.1 mmol/L; Bicarbonate Venous 20.1 mmol/L (24.0-30.0); PCO2 Venous 32.1 mmHg (38-42); pH Blood Venous 7.38 (7.34-7.37)
[2024-05-26 21:21] LABS: Bun/Creatinine Ratio 18.7 (12.0-20.0); Calcium, Blood 8.3 mg/dL (8.5-10.1); Creatinine, Blood 1.55 mg/dL (0.40-1.00); Potassium, Blood 4.5 mmol/L (3.5-5.5)
[2024-05-26] MEDS ORDERED: Ondansetron HCl 2 MG / ML 2ML Vial IV PRN (21:30)
--- NOTE | 2024-05-26 22:34 | NUR ---
LATE NOTE. DISCUSSION WITH DR. GRIFFIN REGARDING PT BLOOD SUGAR. CONTINUES TO TREND DOWN DESPITE D5 RUNNING @ 100 MLS/HR. DR. GRIFFIN CHANGED TO D10 @ 75 MLS/HR TO PREVENT FURTHER DECLINE IN BLOOD SUGAR. D10 INFUSING AT THIS TIME. CONTINUING TO MONITOR.
[2024-05-27] VITALS (7 sets, daily range): BP systolic 142–176; BP diastolic 72–106
--- NOTE | 2024-05-27 02:14 | NUR ---
SPOKE WITH DR. GRIFFIN. PT BLOOD SUGAR HAS DROPPED BY ~60 OVER THE SPAN OF 2 HOURS DESPITE D10 RUNNING @ 75 MLS/HR AND ACETYLCYSTEINE IN D5 RUNNING @ 130 MLS/HR OVER THIS PERIOD OF TIME. DR. GRIFFIN DIRECTED TO GIVE ORDERED D50 AMP AND INCREASE D10 TO 100 MLS/HR. CHECK CBG AGAIN IN 1 HOUR. D50 ADMINISTERED. D10 RATE INCREASED. CONTINUING TO MONITOR.
--- NOTE | 2024-05-27 02:21 | NUR ---
SPOKE AGAIN WITH DR. GRIFFIN. PT WORK OF BREATHING HAS INCREASED. DIFFICULT TO OBTAIN RELIABLE PLETH BUT OXYGEN DEMANDS HAVE INCREASED SOMEWHAT WELL. REQUESTED RESIDENT TO EVALUATE PT. DR. GRIFFIN INFORMED HE WOULD COME TO FLOOR TO EVALUATE. AWAITING ARRIVAL.
[2024-05-27 02:34] LABS: Hematocrit 33.8 % (33.0-51.0); Hemoglobin 10.4 g/dL (11.5-16.0); Mean Corpuscular HGB 32.5 pg (26.0-34.0); Mean Corpuscular HGB Conc 30.8 g/dL (31.5-36.5); Mean Corpuscular Volume 106 fL (80-100); Mean Platelet Volume 10.7 fL (9.1-12.4); NRBC ABSOLUTE 0.18 K/mm3 (0.00-0.02); NRBC Auto 2.1 /100 WBC (0.0-0.2); Platelet Count 197 K/mm3 (150-400); RDW Coefficient Variation 16.8 % (11.7-14.2); White Blood Cell Count 8.41 K/mm3 (4.00-11.30)
[2024-05-27 02:51] LABS: International Normalized Ratio 2.85; Prothrombin Time Results 28.2 Sec (9.7-11.5)
[2024-05-27 03:03] LABS: BAND PERCENT MAN 8 % (0-8); BASOPHILS PERCENT MAN 0 % (0-2); EOSINOPHILS PERCENT MAN 0 % (0-6); LYMPHOCYTES ABSOLUTE MAN 0.58 K/mm3 (0.84-5.20); LYMPHOCYTES PERCENT MAN 7 % (21-46); MONOCYTES ABSOLUTE MAN 0.08 K/mm3 (0.16-1.47); MONOCYTES PERCENT MAN 1 % (4-13); MYELOCYTE ABSOLUTE MAN 0.16 K/mm3 (0.00-0.00); MYELOCYTE PERCENT MAN 2 % (0-0); NEUTROPHILS ABSOLUTE MAN 7.56 K/mm3 (1.96-9.15); SEG NEUTROPHILS PERCENT MAN 82 % (41-73); TOTAL CELLS COUNTED 100
[2024-05-27] MEDS ORDERED: Glucagon, Human Recombinant 1 MG/Vial IV PRN (03:25)
[2024-05-27] MEDS ORDERED: Dextrose 50% 50 ML Syringe IV PRN (03:25)
[2024-05-27 03:45] LABS: Albumin/Globulin Ratio 0.6 (0.8-1.8); Bilirubin, Total 1.1 mg/dL (0.1-1.0); Creatinine, Blood 1.4 mg/dL (0.40-1.00); Globulin, Blood 3.3 g/dL (2.2-4.0); Potassium, Blood 4.2 mmol/L (3.5-5.5); Total Protein, Blood 5.3 g/dL (6.4-8.2)
--- NOTE | 2024-05-27 04:24 | NUR ---
SHIFT SUMMARY. PT CONDITION HAS FLUCTUATED SOMEWHAT OVER COURSE OF SHIFT. SEE PREVIOUS NOTES FOR EXPANDED DETAILS. AT THIS TIME SBP <160, MAINTAINING ADEQUATE SATURATION ON 2 L O2 VIA NC, WORK OF BREATHING REMAINS SOMEWHAT LABORED. REMAINS VERY LETHARGIC/SOMNOLENT. AT TIMES ABLE TO BE ROUSED VIA VERBAL STIMULI AT OTHER TIMES REQUIRES PHYSICAL STIMULI TO WAKE. MOSTLY UNABLE TO REPORT PAIN BUT AT TIMES DOES APPEAR TO BE ACUTELY PAINFUL. ADMINISTERED ORDERED IV FENTANYL X2 THUS FAR. PT HAS BEEN ABLE TO TOLERATE C-COLLAR THROUGHOUT SHIFT FOR THE MOST PART AFTER NOT BEING ABLE TO TOLERATE IT ON DAY SHIFT YESTERDAY PER REPORT. PUREWICK IN PLACE THROUGHOUT SHIFT. ONE SMALL INCONTINENT VOID. MINIMAL URINE OUTPUT, HAS BEEN TEA COLORED FOR MOST OF SHIFT. DR. GRIFFIN AWARE. BLADDER SCAN REVEALED <50 MLS IN BLADDER. BED LOCKED IN LOWEST POSITION. CALL LIGHT LEFT WITHIN REACH. CONTINUING TO MONITOR.
[2024-05-27] MEDS ORDERED: Furosemide 10 MG/ML 4ML Vial IV ONE (14:40)
[2024-05-27] MEDS ORDERED: Bisacodyl 10 MG Supp PR PRN (15:50)
[2024-05-27] MEDS ORDERED: Docusate Sodium Liquid 100 MG UDC PT PRN (15:50)
[2024-05-27] MEDS ORDERED: Magnesium Hydroxide Conc 10 ML UDC PT PRN (15:50)
--- NOTE | 2024-05-27 17:22 | NUR ---
UPDATE: THIS RN AT BEDSIDE WITH OFFICE ASST TO PLACE DOBHOFF. FAMILY AGREEABLE WITH PLAN. PT NOT TOLLERATING INSERTION AND THIS RN IS UNABLE TO ADVANCE TUBE DUE TO CONCERN FOR TUBE MISPLACEMENT. PT INSTRUCTED TO SWOLLOW BUT IS NOT COOPERATING AND CONTINUES TO GAG AND COUGH. DAUGHTER INSTRUCTED THIS RN TO STOP AND THAT SHE DOES NOT WANT TO CONTINUE WITH INSERTION. PROVIDER WOULD LIKE RECTAL TUBE PLACED DUE TO DIARRHEA AND BEING UNABLE TO OBTAIN URINE VIA PURE WICK. DOES NOT WANT TO CONTINUE WITH RECTAL TUBE AT THIS TIME AND WOULD LIKE TO REEVALUATE TOMORROW IF DIARRHEA HAS NOT SLOWED DOWN. PROVIDER INFORMED ABOUT THESE EVENTS AND NO FURTHER ORDERS WERE GIVEN.
[2024-05-27 18:20] LABS: Adenovirus F 40/41 Not Detected (NOT DETECT); Astrovirus Not Detected (NOT DETECT); Campylobacter Sp Not Detected (NOT DETECT); Cryptosporidium Not Detected (NOT DETECT); Cyclospora Cayetanensis Not Detected (NOT DETECT); E. Coli O157 Not Detected (NOT DETECT); Entamoeba Histolytica Not Detected (NOT DETECT); Enteroaggregative E. coli-EAEC Not Detected (NOT DETECT); Enteropathogenic E. coli-EPEC Not Detected (NOT DETECT); Enterotoxigenic E. coli-ETEC Not Detected (NOT DETECT); Giardia Lamblia Not Detected (NOT DETECT); Norovirus GI/GII Not Detected (NOT DETECT); Plesiomonas Shigelloides Not Detected (NOT DETECT); Rotavirus A Not Detected (NOT DETECT); Salmonella Sp Not Detected (NOT DETECT); Sapovirus Not Detected (NOT DETECT); Shiga Toxin-prod E. coli-STEC Not Detected (NOT DETECT); Shigella/Enteroin E. coli-EIEC Not Detected (NOT DETECT); Vibrio Cholerae Not Detected (NOT DETECT); Vibrio Sp Not Detected (NOT DETECT); Yersinia Enterocolitica Not Detected (NOT DETECT)
--- NOTE | 2024-05-27 18:55 | NUR ---
SHIFT SUMMARY: NEURO: PT ALERT AND ORIENTED OFF AND ON TODAY. AT TIMES X4 AND AT TIMES TOO DROWSY TO WAKE UP. PT HAD A REPEAT HEAD CT TODAY. NO ACUTE CHANGES OTHERWISE. CARDIAC: PT WENT FROM NSR TO A FLUTTER AT APPROX 0900. HAS BEEN HYPERTENSIVE OFF AND ON TODAY. TELE REPORTED ST CHANGES THIS EVENING. PROVIDER WAS NOTIFIED AND EKG WAS OBTAINED. PLAN FOR SERIAL TROPONINS. NO OTHER SIGNIFICANT EVENTS HAPPENED. PT HAS REMAINED IN C-COLLAR THROUGHOUT SHIFT. RESP: PT TITRATED TO 1L NC AND HAS BEEN MAINTAINING O2 SATS ABOVE 92%. PTS LUNG SOUNDS HAVE NOT IMPROVED OVER THE DAY, ONLY GOT WORSE. LASIX WERE STARED THIS AFTERNOON AND PT HAS HAD A MODERATE ABOUT OF URINARY OUTPUT SINCE. GI/: PT HAS NOT HAD ANY LACTULOSE TODAY DUE TO COGNITION. [facility] CONTINUES TO HAVE DARK GREEN LOOSE STOOLS. SEE PREVIOUS NOTE REGARDING RECTAL TUBE AND DOBHOUFF. PUREWICK IN PLACE FOR ACCURATE I&O'S. NO OTHER SIGNIFICANT EVENTS HAPPENED DURING THIS SHIFT. WILL CONTINUE TO CARE FOR PT TILL ENDS OF SHIFT.
[2024-05-27 19:57] LABS: HEPATITIS A ANTIBODY, IGM Negative (Negative); HEPATITIS B CORE ANTIBODY, IGM Negative (Negative); HEPATITIS B SURFACE ANTIGEN Negative (Negative); HEPATITIS C AB CIA INTERP Negative (Negative); HEPATITIS C ANTIBODY CIA INDEX 0.04 IV
--- NOTE | 2024-05-27 20:32 | NUR ---
spoke with dr. jaimes. pt continues to demonstrate further st changes on tele. informed that pt converted to aflutter this morning with rate settling in the 90s-110s range. dr. jaimes notified that he would look through chart and enter appropriate orders as well as come by unit when available to evaluate. continuing to monitor.
[2024-05-27] MEDS ORDERED: Metoprolol Tartrate 1 MG/ML 5 ML VIAL IV PRN (20:45)
[2024-05-27] MEDS ORDERED: Acetaminophen 650 MG Supp PR PRN (22:50)
[2024-05-28 00:09] VITALS: BP 162/92
[2024-05-28 03:25] VITALS: BP 148/97
[2024-05-28] MEDS ORDERED: HydrALAZINE HCl 20 MG / ML 1ML Vial IV PRN (03:35)
[2024-05-28 04:14] LABS: Hematocrit 35.5 % (33.0-51.0); Hemoglobin 11.7 g/dL (11.5-16.0); Mean Corpuscular HGB 32.1 pg (26.0-34.0); NRBC ABSOLUTE 0.23 K/mm3 (0.00-0.02); NRBC Auto 3.3 /100 WBC (0.0-0.2); Platelet Count 173 K/mm3 (150-400); RDW Coefficient Variation 16.2 % (11.7-14.2); RDW Standard Deviation 57.1 fL (35.1-46.3); Red Blood Cell Count 3.65 M/mm3 (3.80-5.20); White Blood Cell Count 6.93 K/mm3 (4.00-11.30)
[2024-05-28 04:18] LABS: Mean Corpuscular Volume 97 fL (80-100)
[2024-05-28 04:28] LABS: International Normalized Ratio 2.11; Prothrombin Time Results 21.4 Sec (9.7-11.5)
--- NOTE | 2024-05-28 04:29 | NUR ---
SHIFT SUMMARY. SHIFT HAS GONE WELL OVERALL. AT SHIFT ONSET, PT WAS MUCH MORE LETHARGIC/SOMNOLENT. NOT PARTICIPATING WITH ASSESSMENT, ONLY SPORADICALLY ABLE TO MAKE NEEDS KNOWN. SHIFT HAS PROGRESSED, PT HAS BECOME MORE LUCID MOST OF THE TIME. IS ABLE TO TELL ME HER NAME AND ALTHOUGH IS UNABLE TO ANSWER FURTHER ORIENTATION QUESTIONS APPROPRIATELY. REMAINS ONLY ABLE TO PARTICIPATE WITH ASSESSMENT AT TIMES, AT OTHER TIMES IS NOT FULLY COOPERATIVE WITH ASSESSMENT. HAS BEEN MOSTLY ABLE TO MAKE NEEDS KNOWN THROUGHOUT LATTER HALF OF SHIFT. AT TIMES, PT APPEARS TO BE IN DISTRESS MOANING AND GRIMACING BUT UPON BEING ASKED IF SHE IS IN PAIN OR UNCOMFORTABLE PT DENIES. HAS BEEN WEARING C-COLLAR THROUGHOUT SHIFT, AT TIMES PULLING AT IT AND TRYING TO MANEUVER IT OFF BUT HAS BEEN ABLE TO BE REDIRECTED THUS FAR. PUREWICK IN PLACE, URINE OUTPUT FREQUENT CHARTED APPROPRIATELY. SEVERAL LOOSE GREEN BMs NEAR SHIFT ONSET, HAVE TAPERED OFF THROUGHOUT SHIFT. Q2 HOUR REPOSITIONS. D10 AND ACETYLCYSTEINE RUNNING THROUGHOUT SHIFT. BLOOD SUGARS HAVE LEVELED OFF IN THE 110s-140s RANGE THROUGHOUT SHIFT, CONTINUING TO CHECK Q2. HAS BEEN RUNNING AFLUTTER THROUGHOUT SHIFT. RATE MOSTLY SETTLING IN THE 90s-100s RANGE. SPOKE WITH DR. GRIFFIN EARLY IN SHIFT WHO ORDERED IV LOPRESSOR PRN FOR SUSTAINED HR >110 WHICH HAS NOT NEEDED TO BE ADMINISTERED OF YET. PT HYPERTENSIVE AT TIMES THROUGHOUT SHIFT BUT BLOOD PRESSURE HAS CONSISTENTLY RETURNED TO NORMAL RANGE WITHOUT INTERVENTION THUS FAR. OTHERWISE SHIFT HAS GONE WELL. BED LOCKED IN LOWEST POSITION. CALL LIGHT LEFT WITHIN REACH. BED ALARM ACTIVE. CONTINUING TO MONITOR.
[2024-05-28 04:38] LABS: Magnesium, Blood 1.4 mg/dL (1.6-2.4)
[2024-05-28 04:47] LABS: BAND PERCENT MAN 8 % (0-8); BASOPHILS PERCENT MAN 0 % (0-2); EOSINOPHILS PERCENT MAN 0 % (0-6); LYMPHOCYTES % ATYPICAL MANUAL 1 % (0-0); LYMPHOCYTES ABSOLUTE MAN 0.97 K/mm3 (0.84-5.20); LYMPHOCYTES PERCENT MAN 13 % (21-46); METAMYELOCYTE ABSOLUTE MAN 0.06 K/mm3 (0.00-0.00); METAMYELOCYTE PERCENT MAN 1 % (0-0); MONOCYTES ABSOLUTE MAN 0.27 K/mm3 (0.16-1.47); MONOCYTES PERCENT MAN 4 % (4-13); NEUTROPHILS ABSOLUTE MAN 5.61 K/mm3 (1.96-9.15); SEG NEUTROPHILS PERCENT MAN 73 % (41-73); TOTAL CELLS COUNTED 100
[2024-05-28 04:58] LABS: Albumin/Globulin Ratio 0.6 (0.8-1.8); Bilirubin, Total 1.5 mg/dL (0.1-1.0); Bun/Creatinine Ratio 15.4 (12.0-20.0); Calcium, Blood 7.7 mg/dL (8.5-10.1); Creatinine, Blood 1.36 mg/dL (0.40-1.00); Globulin, Blood 3.5 g/dL (2.2-4.0); Phosphorus, Blood 1.5 mg/dL (2.5-4.9); Total Protein, Blood 5.5 g/dL (6.4-8.2)
--- NOTE | 2024-05-28 05:23 | NUR ---
notified dr. jaimes of several morning labs that came back out of normal range including potassium, phosphorous, mag, calcium, etc. dr. jaimes notified he would put in appropriate orders. awaiting orders.
[2024-05-28] MEDS ORDERED: Mag Sulfate 1 GM/D5% 100ML 100 ML IV ONE (05:30)
[2024-05-28] MEDS ORDERED: Potassium Phosphate Dibasic 25 MM in Dextrose 5% 500 ML IV ONE (06:15)
[2024-05-28 07:24] VITALS: BP 157/95
[2024-05-28] MEDS ORDERED: Mag Sulfate 1 GM/D5% 100ML 100 ML IV STA (07:42)
[2024-05-28] MEDS ORDERED: Furosemide 10 MG/ML 4ML Vial IV SCH (13:00)
[2024-05-28 13:05] VITALS: BP 168/101
[2024-05-28] MEDS ORDERED: LYTES IV SCH (15:25)
[2024-05-28] MEDS ORDERED: MULTIVITAMINS IV SCH (15:25)
[2024-05-28] MEDS ORDERED: D5W IV SCH (15:25)
[2024-05-28] MEDS ORDERED: Aa 4.25%/Calcium/Lytes/D5w 1,000 ML IV SCH (15:25)
[2024-05-28] MEDS ORDERED: [UNRECOGNIZED DRUG - OTHER] IV SCH (15:25)
[2024-05-28] MEDS ORDERED: CALCIUM IV SCH (15:25)
[2024-05-28] MEDS ORDERED: Metoprolol Tartrate 1 MG/ML 5 ML VIAL IV SCH (17:00)
--- NOTE | 2024-05-28 18:39 | NUR ---
SHIFT SUMMARY: NEURO: PT HAS BEEN DROWSY ALL DAY AND WILL WAKE UP BRIEFLY. PT MORE TALKATIVE TODAY BUT HARD TO UNDERSTAND WHAT SHE IS SAYING. FOLLOWING COMMANDS OFF AND ON. CARDIAC: PT HAS BEEN HYPERTENSIVE OFF AND ON TODAY. HR BEGAN TO INCREASE THROUGHOUT THE DAY. DR MASON CALLED AND ORDERED IV METOPROLOL. RESP: PTS LUNG SOUNDS HAVE IMPROVED OVER THE DAY. STILL REMAINS CRACKLY BUT NOT BAD EARLIER. REMAINS ON 1L NC. GI/: PTS BOWEL MOVEMENTS HAVE SLOWED DOWN OVER THE DAY. PURE WICK REMAINS IN PLACE. PT GIVEN LASIX THIS AM AND HAS HAD A MODERATE AMOUNT OF URINARY OUTPUT. IV NUTRITION WAS STARTED TODAY AND PLAN TO START PPN TOMORROW. FAMILY HAS REMAINED AT BEDSIDE ALL DAY AND HAS BEEN VERY SUPPORTIVE AND HELPFUL WITH CARE. NO OTHER SIGNIFICANT EVENTS HAPPENED DURING THIS SHIFT. WILL CONTINUE TO CARE FOR PT TILL END OF SHIFT.
[2024-05-28 20:39] VITALS: BP 149/93
[2024-05-28 23:03] VITALS: BP 148/94
[2024-05-29] VITALS (7 sets, daily range): BP systolic 118–176; BP diastolic 78–106
--- NOTE | 2024-05-29 01:16 | NUR ---
NOTIFIED BY CHAR HOUSE SUPERVISOR THAT PT HAS BEEN HAVING FURTHER ST CHANGES. ELEVATION AND DEPRESSION. NOTIFIED DR. GRIFFIN. NO ORDERS AT THIS TIME.
[2024-05-29 04:17] LABS: BASOPHILS ABSOLUTE AUTO 0.04 K/mm3 (0.00-0.23); BASOPHILS PERCENT AUTO 1 % (0-2); EOSINOPHILS ABSOLUTE AUTO 0.04 K/mm3 (0.00-0.68); EOSINOPHILS PERCENT AUTO 1 % (0-6); Hematocrit 36.2 % (33.0-51.0); Hemoglobin 12.5 g/dL (11.5-16.0); IMMATURE GRAN ABSOLUTE AUTO 0.25 K/mm3 (0.00-0.10); IMMATURE GRAN PERCENT AUTO 4 % (0-1); LYMPHOCYTES ABSOLUTE AUTO 1.31 K/mm3 (0.84-5.20); LYMPHOCYTES PERCENT AUTO 20 % (21-46); MONOCYTES ABSOLUTE AUTO 0.47 K/mm3 (0.16-1.47); MONOCYTES PERCENT AUTO 7 % (4-13); Mean Corpuscular HGB 31.9 pg (26.0-34.0); Mean Corpuscular HGB Conc 34.5 g/dL (31.5-36.5); Mean Platelet Volume 11.1 fL (9.1-12.4); NEUTROPHILS ABSOLUTE AUTO 4.46 K/mm3 (1.96-9.15); NEUTROPHILS PERCENT AUTO 68 % (41-73); NRBC ABSOLUTE 0.13 K/mm3 (0.00-0.02); Platelet Count 177 K/mm3 (150-400); RDW Coefficient Variation 15.8 % (11.7-14.2); RDW Standard Deviation 52.6 fL (35.1-46.3); Red Blood Cell Count 3.92 M/mm3 (3.80-5.20); White Blood Cell Count 6.57 K/mm3 (4.00-11.30)
[2024-05-29 04:31] LABS: International Normalized Ratio 1.69; Prothrombin Time Results 17.4 Sec (9.7-11.5)
--- NOTE | 2024-05-29 04:35 | NUR ---
SHIFT SUMMARY. SHIFT HAS GONE WELL OVERALL. PT HAS BEEN MORE CONSISTENTLY LUCID THIS SHIFT THAN IN SHIFTS PRIOR WITH THIS RN. STILL ONLY SPORADICALLY ABLE TO VOICE NEEDS, ANSWER YES/NO QUESTIONS, BE PARTICIPATORY WITH CARE, ETC. FREQUENTLY MOANS, GRIMACES IF IN PAIN BUT OFTEN DENIES BEING PAINFUL WHEN ASKED ALTHOUGH PT ANSWERS TO QUESTIONS DO NOT SEEM TO BE WHOLLY RELIABLE. Q2 HOUR REPOSITIONS. PT HAS BEEN RUNNING AFLUTTER THROUGHOUT SHIFT. SOME ST CHANGES ON TELE NOTIFIED BY ALTERATION INSPECTOR, SEE PREVIOUS NOTE FOR DETAILS. OXYGEN DEMANDS HAVE SOMEWHAT FLUCTUATED OVER COURSE OF SHIFT. WHEN MORE AWAKE, ABLE TO MAINTAIN ADEQUATE SATURATION ON ROOM AIR. WHEN MORE SOMNOLENT, AT TIMES REQUIRES 1-3 L O2 VIA NC TO MAINTAIN ADEQUATE SATURATION. VITALS STABLE. BLOOD SUGAR HAS BEEN STABLE THROUGHOUT SHIFT. ACETYLCYSTEINE AND CLINIMIX RUNNING THROUGHOUT SHIFT. PUREWICK IN PLACE AND FUNCTIONING WELL, I+Os CHARTED APPROPRIATELY. BED LOCKED IN LOWEST POSITION. CALL LIGHT LEFT WITHIN REACH. CONTINUING TO MONITOR.
[2024-05-29 04:44] LABS: Magnesium, Blood 1.4 mg/dL (1.6-2.4)
[2024-05-29 05:07] LABS: Alanine Aminotransfer (ALT/SGP 1972 U/L (12-78); Albumin, Blood 2.1 g/dL (3.4-5.0); Albumin/Globulin Ratio 0.6 (0.8-1.8); Alk Phos 311 U/L (50-136); Anion Gap 14 mmol/L (3-11); Aspartate Aminotrans (AST/SGOT 3194 U/L (12-37); Bilirubin, Total 2.2 mg/dL (0.1-1.0); Blood Urea Nitrogen 21 mg/dL (8-24); Bun/Creatinine Ratio 21.4 (12.0-20.0); CO2, Blood 31 mmol/L (21-32); Calcium, Blood 8.2 mg/dL (8.5-10.1); Chloride, Blood 96 mmol/L (98-108); Creatinine, Blood 0.98 mg/dL (0.40-1.00); Globulin, Blood 3.8 g/dL (2.2-4.0); Glomerular Filtration Rate 60 (60-); Glucose, Blood 117 mg/dL (70-99); Phosphorus, Blood 2.3 mg/dL (2.5-4.9); Potassium, Blood 2.6 mmol/L (3.5-5.5); Sodium, Blood 138 mmol/L (136-145); Total Protein, Blood 5.9 g/dL (6.4-8.2); Triglycerides 147 mg/dL (30-160)
[2024-05-29 05:27] LABS: Mean Corpuscular Volume 92 fL (80-100)
[2024-05-29] MEDS ORDERED: Potassium Chloride 20 MEQ TabCR PO ONE (06:00)
[2024-05-29] MEDS ORDERED: Potassium Chloride 40 MEQ IV ONE ×2 (06:15→22:35)
[2024-05-29] MEDS ORDERED: Mag Sulfate 1 GM/D5% 100ML 100 ML IV ONE (06:30)
[2024-05-29] MEDS ORDERED: Potassium Phosphate Dibasic 25 MM in Dextrose 5% 500 ML IV ONE (06:30)
[2024-05-29] MEDS ORDERED: Potassium Chloride 40 MEQ in NS 250 ML IV ONE ×3 (07:15→22:50)
[2024-05-29] MEDS ORDERED: FentaNYL Citrate 50 MCG/ML 2 ML Injection IV PRN (10:40)
[2024-05-29] MEDS ORDERED: FentaNYL Citrate 50 MCG/ML 2 ML Injection IV ONE (10:40)
[2024-05-29] MEDS ORDERED: Morphine Sulfate 4 MG/1 ML Injection IV PRN (14:55)
[2024-05-29] MEDS ORDERED: Metoprolol Tartrate 1 MG/ML 5 ML VIAL IV SCH (17:00)
[2024-05-29 17:10] LABS: Magnesium, Blood 1.3 mg/dL (1.6-2.4); Potassium, Blood 3.1 mmol/L (3.5-5.5)
[2024-05-29] MEDS ORDERED: Ketorolac Tromethamine 15mg Vial IV ONE (17:55)
[2024-05-29] MEDS ORDERED: Piperacillin/Tazobactam Sod 3.375 GM in NS 100 ML IV SCH (18:00)
--- NOTE | 2024-05-29 18:07 | NUR ---
UPDATE/SHIFT SUMMARY RECTAL TEMP PROBE PLACED D/T INCREASED HR, AND PATIENT SKIN HOT TO TOUCH. TEMP 102.8. ICE PACKS PLACED ON PATIENT. DR. LOPEZ NOTIFIED. ORDERS FOR BLOOD CXs x2, CHEST XR IN AM, CHANGE IN ABX AND OT DOSE OF IV TORDOL. OTHERWISE, PATIENT WAKES TO VERBAL STIMULI. WILL MOAN IN PAIN OR WITH ANY CARE PROVIDED. RESTLESS T/O SHIFT. C-COLLAR IN PLACE. BP HYPERTENSIVE. TELE AFLUTTER/BBB 110-130s, 150s WITH INCREASED TEMPERATURE. PUREWICK IN PLACE, SIGNIFICANT OUTPUT THIS SHIFT. CLINIMIX AND NAC INFUSING PER EMAR. FAMILY AT BEDSIDE DURING THE DAY. NO OTHER SIGNIFICANT CHANGES, WILL REPORT TO BUTTON FACING MACHINE OPERATOR RN.
[2024-05-29] MEDS ORDERED: NS 250 ML IV PRN (19:30)
--- NOTE | 2024-05-29 22:22 | NUR ---
RESIDENT NOTIFIED OF ELECTROLYTES
[2024-05-29] MEDS ORDERED: Magnesium Sulf 2 GM/Water 50ML 50 ML IV ONE (22:40)
[2024-05-30] VITALS (7 sets, daily range): BP systolic 118–161; BP diastolic 76–104
--- NOTE | 2024-05-30 02:45 | NUR ---
SHIFT SUMMARY NEURO: PT A/OX0. NOT FOLLOWING COMMANDS BUT MOVING ALL EXTREMETIES. WITHDRAWS FROM PAIN. INTERMITTENT TRACKING. PUPILS PERRLA. PT NOT REDIRECTABLE. MOSTLY MOANS AND INTERMITTENT "HELLO" FROM PATIENT. SEIZURE PADS PLACED FOR SAFETY DUE TO PATIENT HITTING BED RAILS WITH LEGS. C-SPINE MAINTAINED WITH CARES. CARDIAC: AFIB. PT'S TMAX WAS 102.F THIS SHIFT. COOLING PAD PLACED UNDER PATIENT. LUNGS: COARSE UPPER LOBES. ON RA. SUCTION ORAL CARE Q4 PERFORMED. SKIN: CHG BATH COMPLETED. FOAM HEAL PROTECTORS PLACED. BLE MEPILEX REINFORCED. POTASSIUM AND MAG REPLACED. CLINIMIX AND NAC RUNNING. PT WOULD BENEFIT FROM A PICC.
[2024-05-30 06:12] LABS: BASOPHILS ABSOLUTE AUTO 0.05 K/mm3 (0.00-0.23); BASOPHILS PERCENT AUTO 1 % (0-2); EOSINOPHILS ABSOLUTE AUTO 0.06 K/mm3 (0.00-0.68); EOSINOPHILS PERCENT AUTO 1 % (0-6); Hematocrit 35.6 % (33.0-51.0); Hemoglobin 12.2 g/dL (11.5-16.0); IMMATURE GRAN PERCENT AUTO 4 % (0-1); LYMPHOCYTES ABSOLUTE AUTO 1.12 K/mm3 (0.84-5.20); LYMPHOCYTES PERCENT AUTO 23 % (21-46); MONOCYTES ABSOLUTE AUTO 0.35 K/mm3 (0.16-1.47); MONOCYTES PERCENT AUTO 7 % (4-13); Mean Corpuscular HGB 32.5 pg (26.0-34.0); Mean Corpuscular HGB Conc 34.3 g/dL (31.5-36.5); Mean Corpuscular Volume 95 fL (80-100); NEUTROPHILS ABSOLUTE AUTO 3.07 K/mm3 (1.96-9.15); NEUTROPHILS PERCENT AUTO 63 % (41-73); NRBC ABSOLUTE 0.07 K/mm3 (0.00-0.02); NRBC Auto 1.4 /100 WBC (0.0-0.2); Platelet Count 146 K/mm3 (150-400); RDW Standard Deviation 54.4 fL (35.1-46.3); Red Blood Cell Count 3.75 M/mm3 (3.80-5.20); White Blood Cell Count 4.85 K/mm3 (4.00-11.30)
[2024-05-30 06:41] LABS: Magnesium, Blood 2.1 mg/dL (1.6-2.4)
[2024-05-30 07:17] LABS: Albumin, Blood 1.8 g/dL (3.4-5.0); Albumin/Globulin Ratio 0.5 (0.8-1.8); Bilirubin, Total 1.7 mg/dL (0.1-1.0); Creatinine, Blood 0.97 mg/dL (0.40-1.00); Globulin, Blood 3.5 g/dL (2.2-4.0); Phosphorus, Blood 2.9 mg/dL (2.5-4.9); Potassium, Blood 3.4 mmol/L (3.5-5.5); Total Protein, Blood 5.3 g/dL (6.4-8.2)
[2024-05-30] MEDS ORDERED: Levothyroxine Sodium 100 MCG Vial IV SCH (09:00)
[2024-05-30] MEDS ORDERED: CALCIUM IV SCH ×2 (10:35→14:45)
[2024-05-30] MEDS ORDERED: [UNRECOGNIZED DRUG - OTHER] IV SCH ×2 (10:35→14:45)
[2024-05-30] MEDS ORDERED: D5W IV SCH ×2 (10:35→14:45)
[2024-05-30] MEDS ORDERED: MULTIVITAMINS IV SCH ×2 (10:35→14:45)
[2024-05-30] MEDS ORDERED: LYTES IV SCH ×2 (10:35→14:45)
[2024-05-30] MEDS ORDERED: Thiamine HCl 100 MG in Aa 4.25%/Calcium/Lytes/D5w 1,000 ML IV SCH ×2 (10:35→15:25)
--- NOTE | 2024-05-30 10:56 | NUR ---
AM NOTE: PATIENT MOANING AND MOVING ALL EXREMITIES UPON BEDSIDE SHIFT REPORT. SHE OPENS EYES AND TRACKS NOC RN FOR A BRIEF MOMENT. PUPILS EQUAL. NOT FOLLOWING ANY COMMANDS. OCCASIONAL WORDS THIS AM SUCH "HI" AND "HELP". NOT ABLE TO REDICRECT. NODDING HEAD YES TO PAIN. MEDICATED PER EMAR FOR PAIN. SWINGING LEGS BACK AND FORTH IN BED. SEIZURE PADS ON BED FOR PROTECTION. BED ALARM IN PLACE. DAUGHTER ANTONY AT BEDSIDE. C-SPINE MAINTAINED/ C-COLLAR REMAINS IN PLACE WITH MEPILEX SCATTERED UNDER EDGES TO PREVENT SKIN BREAKDOWN. Q2 TURNS AND NEEDED. TELE SHOWING AFLUTTER WITH HR 80-90'S THIS AM. SBP 110'S. DOES NOT APPEAR TO BE IN ANY CARDIAC DISTRESS. IV FLUIDS INFUSING PER EMAR. IV ABX INFUSING. MILD EDEMA TO BUE. SCD'S TO BILATERAL CALVES. PPP. IV LOPRESSOR PER EMAR/VITALS. ON ROOM AIR SATING MID 90'S. LUNG SOUNDS COARSE AND DIM IN BASES. OCCASIONAL COUGH. EVEN AND UNLABORED RESPIRTATIONS. Q4 ORAL CARE AND NEEDED. SUCTION AT BEDSIDE. BOWEL TONES PRESENT. NPO. ATTENDS IN PLACE. PUREWICK REMOVED DUE TO EXCORIATION IN RADHA AREA. BARRIER CREAM APPLIED. SKIN PALE, WARM AND SCATTERED SCABBING TO FOREHEAD, TOES, LEFT KNEE. MEPILIEX IN PLACE OVER HEELS, LEFT KNEE, UNDER C-COLLAR AND RIGHT SHOULDER. CALL LIGHT IN REACH. FAMILY REMAINS AT BEDSIDE.
[2024-05-30] MEDS ORDERED: Metoprolol Tartrate 1 MG/ML 5 ML VIAL IV SCH (12:00)
[2024-05-30] MEDS ORDERED: Fat Emulsion 20 % IV 250 ML IV SCH (12:00)
[2024-05-30] MEDS ORDERED: Morphine Sulfate 4 MG/1 ML Injection IV PRN (12:44)
[2024-05-30] MEDS ORDERED: Potassium Chl 20MEQ/Water100ML 100 ML IV ONE (12:55)
[2024-05-30] MEDS ORDERED: Miconazole Nitrate 2% 85 GM PWD TOP PRN (12:55)
--- NOTE | 2024-05-30 13:14 | NUR ---
DR. LOPEZ TO BEDSIDE, THIS RN PRESENT FOR MD ROUNDING. ARIA AND DAUGHTER ANTONY AT BEDSIDE. THIS RN DISCUSSED POTASSIUM, BLOOD SUGARS, RED/IRRITATED RADHA AREA, NYSTATIN POWDER, PAIN MEDICATIONS. ORDERS TO ADJUST MORPHINE 2-4MG IV Q4 PRN TO Q3 PRN, BLADDER SCAN NOW, NYSTATIN POWDER TID PRN FOR IRRITATION, KCL 20 MEQ IV X1 NOW, CLINIMIX RATE BACK TO 90ML/HR AND BLOOD SUGAR CHECKS Q1 X4 OR UNTIL STABLE. SUPERVISOR [employer] CALLED TO UPDATE ON CLINIMIX RATE. ORDERS IN PLACE.
[2024-05-30] MEDS ORDERED: Aa 4.25%/Calcium/Lytes/D5w 1,000 ML IV SCH (14:45)
[2024-05-30] MEDS ORDERED: Ketorolac Tromethamine 15mg Vial IV ONE (16:50)
--- NOTE | 2024-05-30 18:15 | NUR ---
SHIFT SUMMARY: NO ACUTE CHANGES TO NEURO SEE PREVIOUS NOTE AND ASSESSMENT. PATIENT CONTINUES TO NOT FOLLOW COMMANDS, MOANING AND GROANING. VERY MINIMAL WORDS SPOKEN SUCH "HI" AND "HELP". OCCASIONALLY NODDING HEAD TO QUESTIONS. REMAINS AT BEDSIDE. MOVING ALL EXTREMITIES IN BED AND TURNING SELF FROM SIDE TO SIDE. BED ALARM REMAINS IN PLACE. Q2 TURNING AND NEEDED. TELE REMAINS AFLUTTER. SCHEDULED IV LOPRESSOR GIVEN PER EMAR AND VITALS. REMAINS ON ROOM AIR. NPO. C-SPINE MAINTAINED. BLOOD SUGAR CHECKS. FLUIDS CONTINUE TO INFUSE PER EMAR. TMAX 102.0. DR. LOPEZ NOTIFIED AND ORDERS FOR TORDAL, TEMP TRENDING DOWN. CALL LIGHT IN REACH. REMAINS AT BEDSIDE.
[2024-05-30] MEDS ORDERED: Ketorolac Tromethamine 15mg Vial IV PRN (18:25)
[2024-05-31 00:54] LABS: Bun/Creatinine Ratio 41.5 (12.0-20.0); Calcium, Blood 7.8 mg/dL (8.5-10.1); Creatinine, Blood 0.96 mg/dL (0.40-1.00); Potassium, Blood 3.7 mmol/L (3.5-5.5)
[2024-05-31] MEDS ORDERED: FentaNYL Citrate 50 MCG/ML 2 ML Injection IV PRN ×2 (01:05→13:40)
[2024-05-31] MEDS ORDERED: Haloperidol Lactate Inj. 5 MG/ML Injection IM PRN (01:15)
[2024-05-31] MEDS ORDERED: Morphine Sulfate 10 MG/ML 1MLSYR IV PRN (01:20)
[2024-05-31 03:29] LABS: BASOPHILS ABSOLUTE AUTO 0.06 K/mm3 (0.00-0.23); BASOPHILS PERCENT AUTO 1 % (0-2); EOSINOPHILS ABSOLUTE AUTO 0.21 K/mm3 (0.00-0.68); EOSINOPHILS PERCENT AUTO 3 % (0-6); Hematocrit 36.7 % (33.0-51.0); Hemoglobin 12.4 g/dL (11.5-16.0); IMMATURE GRAN ABSOLUTE AUTO 0.31 K/mm3 (0.00-0.10); IMMATURE GRAN PERCENT AUTO 4 % (0-1); LYMPHOCYTES ABSOLUTE AUTO 2.19 K/mm3 (0.84-5.20); LYMPHOCYTES PERCENT AUTO 29 % (21-46); MONOCYTES ABSOLUTE AUTO 0.62 K/mm3 (0.16-1.47); MONOCYTES PERCENT AUTO 8 % (4-13); Mean Corpuscular HGB 32.1 pg (26.0-34.0); Mean Corpuscular HGB Conc 33.8 g/dL (31.5-36.5); Mean Corpuscular Volume 95 fL (80-100); Mean Platelet Volume 11.9 fL (9.1-12.4); NEUTROPHILS ABSOLUTE AUTO 4.07 K/mm3 (1.96-9.15); NEUTROPHILS PERCENT AUTO 55 % (41-73); NRBC ABSOLUTE 0.05 K/mm3 (0.00-0.02); NRBC Auto 0.7 /100 WBC (0.0-0.2); Platelet Count 129 K/mm3 (150-400); RDW Coefficient Variation 16.4 % (11.7-14.2); RDW Standard Deviation 55.8 fL (35.1-46.3); Red Blood Cell Count 3.86 M/mm3 (3.80-5.20); White Blood Cell Count 7.46 K/mm3 (4.00-11.30)
[2024-05-31 03:49] VITALS: BP 122/84
[2024-05-31 03:56] LABS: Albumin/Globulin Ratio 0.6 (0.8-1.8); Bilirubin, Total 1.8 mg/dL (0.1-1.0); Bun/Creatinine Ratio 41.6 (12.0-20.0); Creatinine, Blood 1.01 mg/dL (0.40-1.00); Globulin, Blood 3.5 g/dL (2.2-4.0); Magnesium, Blood 1.6 mg/dL (1.6-2.4); Phosphorus, Blood 3.3 mg/dL (2.5-4.9); Potassium, Blood 3.7 mmol/L (3.5-5.5); Total Protein, Blood 5.5 g/dL (6.4-8.2)
--- NOTE | 2024-05-31 06:27 | NUR ---
SHIFT SUMMARY NEURO: PT STATED NAME ONE TIME FOR THIS NURSE. MORE TRACKING NOTED. INCREASE IN NONSENSICLE VERBALIZATION/YELLING COMPARED TO PREVIOUS NIGHT. NOT FOLLOWING COMMANDS BUT MOVING ALL EXTREMETIES. PT PLACED IN CHANDRAKANT VEST DUE TO AGITATION AND ROCKING INTO BED RAILS. PT DID NOT SLEEP UNTIL 0500. C-COLLAR REMAINS IN PLACE- COLLAR WAS ADJUSTED AND SKIN CLEANED. PAIN MEDICINE GIVEN WITH LITTLE EFFECT. PERRLA. CARDIAC: PT STILL IN A FLUTTER. RATE DOWN TO 70'S. AFEBRILE THIS SHIFT. COOLING PAD REMOVED AT THIS TIME. +2 GENERALIZED EDEMA. LUNGS: COARSE UPPER LOBES. DIMINISHED BASES. PLACED ON 2L NC ONCE PT FELL ASLEEP. ON RA WHILE AWAKE. Q4 SUCTION ORAL CARE PERFORMED. GI/: LAST BM CHARTED 05/28. FREQUENT INCONTINENT URINATION. PERIAREA EXCORIATED SO PUREWICK NOT UTILIZED. PT IS ITCHING AT GENITIALIA WITH WHITE CURDLED LIKE DISCHARGE AROUND VULVA, CLEANED AND MICOTIN POWDER APPLIED. SKIN: MEPILEXES ON BONY PROMINENCES REINFORCED. FOAM HEAL PROTECTORS IN PLACE. MEPILEXES IN PLACE UNDER C-COLLOR. SEVERE EXCORIATION NOTED UNDER C-COLLOR. PT IS CONTINUALLY RUBBING CHIN AGAINST DEVICE. IV'S REINOFRCED WITH NETTING AND HIDDEN FROM PATIENT. NO BREAKDOWN ON COCCYX. RED PERIANAL AREA. CHG BATH GIVEN AND MICOTIN POWDER APPLIED TO SKIN FOLDS. POWERGLIDE PLACED.
[2024-05-31 07:30] VITALS: BP 157/96
--- NOTE | 2024-05-31 10:27 | NUR ---
AM NOTE: PATIENT RESTING IN BED COMFORTABLY UPON SHIFT START WITH CHANDRAKANT VEST IN PLACE. CHANDRAKANT VEST REMOVED AT 0915. DAUGHTER ANTONY AT BEDSIDE. PATIENT OPEN EYES TO VOICE AND TOUCH. TRACKS THIS RN OR DAUGHTER BRIEFLY. STILL NOT FOLLOWING ANY COMMANDS AND WILL YELLOUT/MOAN IN RESPONSE TO MOST QUESTIONS OR CARES. OCCASIONALLY SAYING WORDS SUCH "HI, WATER, HELP, WHAT, NO". NODDING HEAD YES TO SOME QUESTIONS. NO FACIAL DROOP NOTED. SWINGING ARMS AND LEGS AROUND IN BED AND FREQUENTING KICKING LEGS UP AND FROM SIDE TO SIDE. C-SPINE MAINTAINED/C-COLLAR IN PLACE. REDNESS/ABRASION TO CHIN FROM C-COLLAR. 3 RN'S TO ASSIST WITH CHIN CLEANSING AND MEPITEL PLACEMENT. TELE SHOWING AFLUTTER WITH HR 80-90'S. MILD EDEMA NOTED TO BLE. SCD'S IN PLACE. FLUIDS INFUSING PER EMAR. ON 2L NASAL CANNULA SATING MID 90'S. OXYGEN NEEDED WHEN PATIENT IS SLEEPING. DAUGHTER DISCUSSES PATIENT HAVING CPAP AT HOME BUT REFUSING TO WEAR IT. EVEN AND UNLABORED RESPIRTATIONS. OCCASIONAL NONPRODUCTIVE COUGH. SUCTION AT BEDSIDE. ORAL CARE THIS AM. SOME SORES NOTED TO PALLATE AND TONGUE. DAUGHTER STATES SHE HAS BEEN HAVING CHRONIC SORES AT HOME. BOWEL TONES PRESENT. ATTENDS IN PLACE. INCONTINENT OF URINE. EXCORIATION TO RADHA AREA, IMPROVED FROM YESTERDAY DAY SHIFT. CLEANSED AND NEW POWDER APPLIED. NPO. Q4 ORAL CARES. SCABBING TO FOREHEAD, NOSE, LEFT KNEE AND TOES. REDNESS TO RIGHT SHOULDER DUE TO C-COLLAR. MEPILEXES IN PLACE AND SKIN CHECK COMPLETED. CALL LIGHT IN REACH.
[2024-05-31 12:09] VITALS: BP 156/101
[2024-05-31 12:26] VITALS: BP 121/70
--- NOTE | 2024-05-31 12:39 | NUR ---
DR. LOPEZ TO BEDSIDE, THIS RN AND DAUGHTER ANTONY PRESENT FOR MD ROUNDING. DISCUSSED GOALS OF CARE AND CURRENT TREATMENT. ARIA TO BE AT BEDSIDE. SOON. PATIENT CONTINUES TO BE CALM THROUGHOUT MORNING WITH OCCASIONAL STIRRING AND CALLING OUT WITH CARES AND TURNS. AFTERNOON CARES COMPLETED AND PATIENT STATES "I AM IN PAIN". MEDICATED PER EMAR WITH GOOD RELIEF. PATIENT CALM AT THIS TIME. PATIENT HAS CALLED OUT LESS THIS AFTERNOON. VITAL SIGNS REMAIN STABLE. STILL NOT FOLLOWING COMMANDS AND NOT ABLE TO REDIRECT. CONTINUES TO OPEN EYES AND SPEAK A FEW WORDS/NODDING HEAD YES. THIS RN DISCUSSED RECTAL TEMP PRODE WITH DR. LOPEZ. PROBE NOT IN PLACE UPON SHIFT START, ORDERS TO NOT REPLACE AT THIS TIME. BED ALARM IN PLACE.
--- NOTE | 2024-05-31 13:51 | NUR ---
PATIENT MOANING OUT, SAYING "HELP ME", NODDING YES TO PAIN. THIS RN PLACED CALL TO DR. LOPEZ TO UPDATE. SEE EMAR FOR PAIN MEDICATION ORDERS. PATIENT MEDICATED AND PAIN IMPROVED. ARIA AT BEDSIDE.
[2024-05-31 13:57] LABS: International Normalized Ratio 1.41; Prothrombin Time Results 14.7 Sec (9.7-11.5)
[2024-05-31] MEDS ORDERED: Thiamine HCl 100 MG in Aa 4.25%/Calcium/Lytes/D5w 1,000 ML IV SCH (14:45)
[2024-05-31 15:37] VITALS: BP 136/86
--- NOTE | 2024-05-31 18:33 | NUR ---
SHIFT SUMMARY: PATIENT MENTATION SLIGHTLY IMPROVED THIS EVENING. RESPONDING TO QUESTIONS SUCH PAIN WITH SHAKING HEAD YES AND NO. TALKING MORE SAYING "I NEED HELP". PULLING AT C-COLLAR AT TIMES AND REACHING UP TO THE CEILING. COOPERATIVE WITH CARES THIS AFTERNOON AND EVENING. STILL NOT FOLLOWING COMMANDS. MEDICATED PER PAIN THIS EMAR. IMPROVED PAIN AND LESS YELLING OUT COMPARED TO YESTERDAY DAY SHIFT. C-SPINE MAINTAINED. CHG BATH AND MEPILEX CHANGES AROUND C-COLLAR THIS EVENING. CALLS PLACED TO INQUIRE ABOUT RESIZING C-COLLAR, SKIN BREAKDOWN SURROINDING C-COLLAR. TELE CONTINUES TO SHOW AFLUTTER WITH HR 80-90'S. IV CLINIMIX AND IV ABX INFUSING PER EMAR. IV LOPRESSOR PUSHES PER EMAR. SCD'S IN PLACE. ON ROOM AIR TO 1L NASAL CANNULA. EVEN AND UNLABORED RESPIRTATIONS. BOWEL TONES PRESENT. 2 SMALL GREEN/LIQUID/MUCOUSY BOWEL MOVEMENTS THIS SHIFT. ATTENDS IN PLACE. RADHA AREA CONTINUES TO BE RED AND EXCORIATED, IMPROVED FROM YESTERDAY SHIFT. BARRIER CREAMS AND POWDER USED AFTER CLEANSING WITH ATTEND CHANGES. NPO. ORAL CARE Q4. PATIENT FIGHTING ORAL CARE AND AT TIMES SPITTING. SUCTION AT BEDSIDE. BED ALARM IN PLACE. ARIA REMAINS AT BEDSIDE AT THIS TIME.
[2024-05-31 21:32] VITALS: BP 151/92
[2024-06-01] VITALS (7 sets, daily range): BP systolic 132–158; BP diastolic 90–114
[2024-06-01 04:56] LABS: BASOPHILS ABSOLUTE AUTO 0.03 K/mm3 (0.00-0.23); BASOPHILS PERCENT AUTO 1 % (0-2); EOSINOPHILS ABSOLUTE AUTO 0.11 K/mm3 (0.00-0.68); EOSINOPHILS PERCENT AUTO 2 % (0-6); Hematocrit 34.2 % (33.0-51.0); Hemoglobin 11.6 g/dL (11.5-16.0); IMMATURE GRAN ABSOLUTE AUTO 0.17 K/mm3 (0.00-0.10); IMMATURE GRAN PERCENT AUTO 3 % (0-1); LYMPHOCYTES ABSOLUTE AUTO 0.99 K/mm3 (0.84-5.20); LYMPHOCYTES PERCENT AUTO 15 % (21-46); MONOCYTES ABSOLUTE AUTO 0.56 K/mm3 (0.16-1.47); MONOCYTES PERCENT AUTO 8 % (4-13); Mean Corpuscular HGB 32.1 pg (26.0-34.0); Mean Corpuscular HGB Conc 33.9 g/dL (31.5-36.5); Mean Corpuscular Volume 95 fL (80-100); Mean Platelet Volume 12.1 fL (9.1-12.4); NEUTROPHILS PERCENT AUTO 72 % (41-73); NRBC ABSOLUTE 0.04 K/mm3 (0.00-0.02); NRBC Auto 0.6 /100 WBC (0.0-0.2); Platelet Count 126 K/mm3 (150-400); RDW Coefficient Variation 16.7 % (11.7-14.2); RDW Standard Deviation 55.2 fL (35.1-46.3); Red Blood Cell Count 3.61 M/mm3 (3.80-5.20); White Blood Cell Count 6.66 K/mm3 (4.00-11.30)
[2024-06-01 05:19] LABS: Albumin/Globulin Ratio 0.6 (0.8-1.8); Bilirubin, Total 1.8 mg/dL (0.1-1.0); Calcium, Blood 7.7 mg/dL (8.5-10.1); Creatinine, Blood 0.98 mg/dL (0.40-1.00); Globulin, Blood 3.5 g/dL (2.2-4.0); Potassium, Blood 3.4 mmol/L (3.5-5.5); Total Protein, Blood 5.5 g/dL (6.4-8.2)
[2024-06-01] MEDS ORDERED: Potassium Chl 20MEQ/Water100ML 100 ML IV ONE ×2 (06:20→06:45)
--- NOTE | 2024-06-01 06:34 | NUR ---
SHIFT SUMMARY NEURO: IMPROVING. PT IS MORE INTERACTIVE WITH STAFF. SOMETIMES ANSWERING QUESTIONS, RESPONDING "WHAT DID YOU SAY?" AND OTHER SHORT SENTENCES. PT ABLE TO MAKE NEEDS KNOWN AFTER SOME QUESTIONING BY STAFF. NOT FOLLOWING COMMANDS BUT MAY BE MORE BEHAVIOR RELATED. MOVES ALL EXTREMETIES. PUPILS PERRLA. C-COLLAR IN PLACE. CARDIAC: HR HAS INCREASED OVER NIGHT, UP TO 154. LUNGS: COARSE UPPER LOBES, DIMINISHED BASES. INTERMITTENT 1-2L NC WHILE SLEEPING. GI/: LOOSE GREEN BM'S AT LEAST EVERY OTHER HOUR. FREQUENT INCONTINENT URINATIONS. PT STATED "OWE, OWE, OWE" AND NODDED YES WHEN ASKED IF IT WAS HER STOMACH THAT HURT. SKIN: C- COLLAR CARE PROVIDED. CHG USED TO WASH NECK, MEPITEL PLACED ON L SHOULDER BREAKDOWN. MICOTIN POWDER APPLIED UNDER COLLAR WELL. NO OTHER NEW BREAKDOWN. POTASSIUM REPLACED WITH 20MEQ
[2024-06-01] MEDS ORDERED: FentaNYL Citrate 50 MCG/ML 2 ML Injection IV PRN (12:11)
[2024-06-01] MEDS ORDERED: TPN Consult Notification XX ONE (13:40)
--- NOTE | 2024-06-01 14:44 | NUR ---
DR. GREER TO BEDSIDE, PRESENT. ORDERS FOR 1600 BMP AND TO CHANGE IV FENTANYL 25-50MCG Q3 PRN FOR PAIN TO Q2 PRN FOR PAIN. PLAN FOR ABDOMINAL XRAY AND NEW C-COLLAR PLACEMENT BY [facility]. PORTABLE ABDOMINAL XRAY COMPLETED. [facility] HERE TO PLACE ASPEN C-COLLAR. SKIN CARE AND NEW DRESSINGS PLACED UNDER C-COLLAR. PICTURES TAKEN FOR CHART OF SKIN BREAKDOWN TO RIGHT SHOULDER, RIGHT EAR AND CHIN/JAWLINE. C-SPINE MAINTAINED.
--- NOTE | 2024-06-01 15:26 | NUR ---
SPOKE WITH PT'S ARIA THIS AFTERNOON. HE STATES THE PHYSICIAN ADVICED HIM TO "TAKE IT DAY BY DAY," AND HE STATES THAT'S EXACTLY WHAT HE IS GOING TO DO. HE STATES HE ISN'T READY TO ACCEPT ANYTHING ELSE AT THIS POINT. WILL CONTINUE TO PROVIDE SUPPORT.
--- NOTE | 2024-06-01 15:55 | NUR ---
DOCTOR PERCY NOTIFIED OF SKIN BREAKDOWN UNDER C-COLLAR AND STAGE 2 PRESSURE GRADING TO RIGHT SHOULDER RELATED TO C-COLLAR. WOUND CARE ORDERS IN PLACE. SEE CHART PHOTOS.
[2024-06-01 16:04] LABS: C DIFFICILE DNA Negative (Negative)
[2024-06-01 16:44] LABS: Bun/Creatinine Ratio 41.9 (12.0-20.0); Calcium, Blood 7.9 mg/dL (8.5-10.1); Creatinine, Blood 1.05 mg/dL (0.40-1.00); Potassium, Blood 3.5 mmol/L (3.5-5.5)
[2024-06-01] MEDS ORDERED: [UNRECOGNIZED DRUG - OTHER] IV SCH (17:00)
--- NOTE | 2024-06-01 19:00 | NUR ---
SHIFT SUMMARY: NEURO REMAINS UNCHANGED THROUGHOUT SHIFT PATIENT MORE SLEEPY THIS AFTERNOON COMPARED TO BEING MORE ALERT THIS MORNING. CONTINUES TO WAKE FOR CARES. SPEAKING IN WORDS, SHORT SENTENCES OR NODDING HEAD YES OR NO. FOLLOWING SOME SIMPLE COMMANDS. INTERMIT BACK/NECK PAIN. C-COLLAR IN PLACE. C-SPINE MAINTAINED. TELE CONTINUES TO SHOW AFLUTTER. HR 80-120'S. ON ROOM AIR - 1L NASAL CANNULA. BOWEL TONES PRESENT. BOWEL MOVEMENTS HAVE SLOWED. INCONTINENT, ATTENDS IN PLACE. RADHA AREA REMAINS EXCORIATED. CREAMS AND POWDERS USED. EXCORIATION CONTINUES TO IMPROVE OVER THE LAST COUPLE OF DAYS. ARIA REMAINS AT BEDSIDE. REPORTED OFF TO SHANKAR CORREIA
[2024-06-02 00:46] VITALS: BP 155/114
[2024-06-02 04:06] VITALS: BP 162/112
--- NOTE | 2024-06-02 05:55 | NUR ---
SHIFT SUMMARY PATIENT IS ALERT AND ORIENTED TO SELF ONLY. PATIENT HAS HAD NO ACUTE EVENTS THIS SHIFT. VITAL SIGNS REVIEWED. PATIENT HAS BEEN REPOSITIONED Q2. PATIENT HAS COMPLAINED OF PAIN AND MEDICATED PER EMAR. PATIENT HAS NO COMPLAINTS OF SOB, NAUSEA, OR VOMITTING THIS SHIFT. BED IN LOCKED AND LOWEST POSITION. CALL LIGHT IN PLACE.
[2024-06-02 07:17] VITALS: BP 163/131
[2024-06-02 07:17] LABS: BASOPHILS ABSOLUTE AUTO 0.05 K/mm3 (0.00-0.23); BASOPHILS PERCENT AUTO 1 % (0-2); EOSINOPHILS ABSOLUTE AUTO 0.06 K/mm3 (0.00-0.68); EOSINOPHILS PERCENT AUTO 1 % (0-6); Hematocrit 38.6 % (33.0-51.0); Hemoglobin 12.9 g/dL (11.5-16.0); IMMATURE GRAN ABSOLUTE AUTO 0.19 K/mm3 (0.00-0.10); IMMATURE GRAN PERCENT AUTO 2 % (0-1); LYMPHOCYTES ABSOLUTE AUTO 1.73 K/mm3 (0.84-5.20); LYMPHOCYTES PERCENT AUTO 17 % (21-46); MONOCYTES ABSOLUTE AUTO 0.76 K/mm3 (0.16-1.47); MONOCYTES PERCENT AUTO 8 % (4-13); Mean Corpuscular HGB 32.2 pg (26.0-34.0); Mean Corpuscular HGB Conc 33.4 g/dL (31.5-36.5); Mean Corpuscular Volume 96 fL (80-100); Mean Platelet Volume 12.5 fL (9.1-12.4); NEUTROPHILS ABSOLUTE AUTO 7.33 K/mm3 (1.96-9.15); NEUTROPHILS PERCENT AUTO 72 % (41-73); NRBC ABSOLUTE 0.04 K/mm3 (0.00-0.02); NRBC Auto 0.4 /100 WBC (0.0-0.2); Platelet Count 156 K/mm3 (150-400); RDW Coefficient Variation 17.6 % (11.7-14.2); RDW Standard Deviation 58.1 fL (35.1-46.3); Red Blood Cell Count 4.01 M/mm3 (3.80-5.20); White Blood Cell Count 10.12 K/mm3 (4.00-11.30)
[2024-06-02 07:38] LABS: Albumin, Blood 2.2 g/dL (3.4-5.0); Albumin/Globulin Ratio 0.5 (0.8-1.8); Bilirubin, Total 2.1 mg/dL (0.1-1.0); Bun/Creatinine Ratio 39.1 (12.0-20.0); Calcium, Blood 8.2 mg/dL (8.5-10.1); Creatinine, Blood 1.15 mg/dL (0.40-1.00); Globulin, Blood 4.2 g/dL (2.2-4.0); Magnesium, Blood 1.6 mg/dL (1.6-2.4); Phosphorus, Blood 3.8 mg/dL (2.5-4.9); Potassium, Blood 4.1 mmol/L (3.5-5.5); Total Protein, Blood 6.4 g/dL (6.4-8.2)
[2024-06-02 07:46] VITALS: BP 168/113
--- NOTE | 2024-06-02 09:32 | NUR ---
0930- RN NOTIFIED MD GREER ABOUT PT'S HR= 130-150'S SINCE SHIFT CHANGE. GAVE VERBAL FOR 5MG IV METOPROLOL PUSH NOW.
[2024-06-02] MEDS ORDERED: Metoprolol Tartrate 1 MG/ML 5 ML VIAL IV ONE (09:35)
[2024-06-02 12:12] VITALS: BP 147/118
[2024-06-02 12:14] VITALS: BP 147/118
[2024-06-02] MEDS ORDERED: Scopolamine Hydrobromide Patch TOP PRN (12:40)
[2024-06-02] MEDS ORDERED: LORazepam 1 MG Tab PO PRN (12:40)
[2024-06-02] MEDS ORDERED: Atropine Sulfate 1% Opth Soln 2ML BTL SL PRN (12:40)
[2024-06-02] MEDS ORDERED: Morphine Sulfate 20 MG/1ML 1 ML Oral Syringe SL PRN (12:40)
--- NOTE | 2024-06-02 12:53 | NUR ---
PT TRANSITIONING TO COMFORT CARE, PT'S STATES HE IS READY. RECEIVED ORDERS FROM DR GREER. WILL REMOVE NECK BRACE FOR COMFORT, USE NECK PILLOW FOR COMFORT PT TOLERATES.
--- NOTE | 2024-06-02 18:13 | NUR ---
SUMMARY- AAOX0. PAIN WELL CONTROLLED WITH EMAR MEDS. RESPERS 30-40 THIS SHIFT DESPITE 20MG ROXANOL GIVEN MULTIPLE TIMES. MD GREER AND PALLIATIVE AWARE. BEDREST. PT UNSAFE TO EAT/DRINK ANYTHING. ATIVAN HELPED RELIEVE PT'S ANXIETY. PT ON 2L FOR COMFORT.
[2024-06-03] MEDS ORDERED: Levothyroxine Sodium 100 MCG Vial IV SCH (06:00)
--- NOTE | 2024-06-03 06:26 | NUR ---
COMFORT CARE SHIFT PATIENT IS NOT ALERT AND ORIENTED. PATIENTS PAIN IS WELL CONTROLLED AND RESTING COMFORTABLY. DAUGHTER HAS BEEN IN AND OUT VISITING THIS SHIFT. BED IN LOCKED AND LOWEST POSITION. CALL LIGHT IN PLACE.
--- NOTE | 2024-06-03 18:39 | NUR ---
SHIFT SUMMARY PATIENT RESPONDING TO PAINFUL STIMULI. MEDICATED WITH ROXANOL PER MAY. CONTINUES WITH Q2 HOUR REPOSITIONING. MEPILEX CHANGED TO RIGHT SHOUDLER/NECK AND LEFT KNEE. CONTINUES WITH 2 LPM OXYGEN USE VIA NASAL CANNULA FOR COMFORT. MATEUSZ PLACED THIS SHIFT FOR COMFORT FENTON CATHETER NOT FEASIBLE WITH PESSARY PLACED FRO VAGINAL PROLAPSE. FAMILY ATBEDSIDE THROUGHOUT THE SHIFT. NO OTHER CONCERNS AT THIS TIME.
--- NOTE | 2024-06-04 05:51 | NUR ---
COMFORT CARE: REPOSITIONED AND BRIEFS CHANGED PRN. 20MG ROXAMOL GIVEN FOR LABORED RESP, COMFORT. RESPONDS TO MOUTH SWAB, MOANING OTHERWISE UNRESPONSIVE. PLAN: GO HOME WITH HOSPICE, 06/01/24
--- NOTE | 2024-06-04 07:19 | NUR ---
ASSUMED CAREO OF PATIENT. SLEEPING DURING SHIFT CHANGE. COMFORT CARE; EXCESS SECRETIONS INCREASING, PER NIGHT NURSE. C-COLLAR NOT ON DUE TO PRESSURE POINTS DEVELOPING. PLAN TO GO HOME ON HOSPICE TODAY. BED IN LOWEST POSITION. CALL LIGHT WITHIN REACH.
--- NOTE | 2024-06-04 18:29 | NUR ---
END OF SHIFT SUMMARY: SOLOMNENT AND ROUSES ONLY TO PAIN. NOT TAKING FOOD OR DRINK AT THIS TIME. STAFF PROVIDING Q2H TURN. ROXANOL FOR PAIN AND ATROPINE GTTs FOR EXCESSIVE SECRETIONS. FAMILY AT BEDSIDE ALL DAY. DECISION MADE TO NOT MOVE PATIENT SECONDARY TO IMMINENCE. BED IN LOWEST POSITION, CALL LIGHT WITHIN REACH, ALL NEEDS MET. REPORT TO ONCOMING NURSE.
--- NOTE | 2024-06-04 19:24 | NUR ---
PATIENT PASSED c DAUGHTERS JOMAR AND ANTONY @ BEDSIDE. CONFIRMED c SECOND NURSE, BERNARD ALEX.
--- NOTE | 2024-06-04 21:44 | NUR ---
SHIFT SUMM: PT SURROUNDED BY FAMILY AT 0. BREN HAY CONFIRNED WITH MYSELF. ROB (TEMI) CAME TO ASSISTANT ASSOCIATE FULL PROFESSOR BODY AT 2134. PT HAD FAMILY IN ROOM DURING ASSISTANT ASSOCIATE FULL PROFESSOR.PT WAS CLEANE DUP BEFORE ASSISTANT ASSOCIATE FULL PROFESSOR AND BELONGINGS SENT HOME WITH FAMILY.
[2024-06-05 09:35] LABS: Influenza A, PCR POSITIVE (NEGATIVE)
== END 2024-06-04 19:10 | DRG 871 ==
LOC: ER 01:18 → PCU 07:17 → ERHOLD 07:17 → PCU 15:37 → MEDS 06-02 01:31
PROVIDERS: Family Medicine; Internal Medicine; Internal Medicine Gastroenterology; Student in an Organized Health Care Education/Training Program; ADMIT Family Medicine
PROC: 3E03329 Introduction of Other Anti-infective into Peripheral Vein, Percutaneous Approach (ICD-10-PCS; 2024-05-25)
PROC: 0DH67UZ Insertion of Feeding Device into Stomach, Via Natural or Artificial Opening (ICD-10-PCS; principal; 2024-05-27)
PROC: 3E0G76Z Introduction of Nutritional Substance into Upper GI, Via Natural or Artificial Opening (ICD-10-PCS; 2024-05-27)
DX: A41.89 Other specified sepsis (principal); G92.8 Other toxic encephalopathy; J10.01 Influenza due to other identified influenza virus with the same other identified influenza virus pneumonia; S06.5XAA Traumatic subdural hemorrhage with loss of consciousness status unknown, initial encounter; J96.01 Acute respiratory failure with hypoxia; R65.21 Severe sepsis with septic shock; K72.00 Acute and subacute hepatic failure without coma; I48.92 Unspecified atrial flutter; S12.101A Unspecified nondisplaced fracture of second cervical vertebra, initial encounter for closed fracture; J84.9 Interstitial pulmonary disease, unspecified; E87.20 Acidosis, unspecified; N17.9 Acute kidney failure, unspecified; M80.08XA Age-related osteoporosis with current pathological fracture, vertebra(e), initial encounter for fracture; D68.9 Coagulation defect, unspecified; F03.911 Unspecified dementia, unspecified severity, with agitation; E87.0 Hyperosmolality and hypernatremia; M62.82 Rhabdomyolysis; I50.42 Chronic combined systolic (congestive) and diastolic (congestive) heart failure; Z51.5 Encounter for palliative care; Z66 Do not resuscitate; E03.9 Hypothyroidism, unspecified; N18.30 Chronic kidney disease, stage 3 unspecified; F32.A Depression, unspecified; I25.10 Atherosclerotic heart disease of native coronary artery without angina pectoris; E78.5 Hyperlipidemia, unspecified; G47.33 Obstructive sleep apnea (adult) (pediatric); I34.0 Nonrheumatic mitral (valve) insufficiency; M06.9 Rheumatoid arthritis, unspecified; M35.00 Sjogren syndrome, unspecified; E66.9 Obesity, unspecified; D63.1 Anemia in chronic kidney disease; E83.42 Hypomagnesemia; M85.80 Other specified disorders of bone density and structure, unspecified site; Z96.653 Presence of artificial knee joint, bilateral; Z96.642 Presence of left artificial hip joint; W19.XXXA Unspecified fall, initial encounter; E87.5 Hyperkalemia; I48.91 Unspecified atrial fibrillation; I73.9 Peripheral vascular disease, unspecified; M20.42 Other hammer toe(s) (acquired), left foot; M20.41 Other hammer toe(s) (acquired), right foot; M20.10 Hallux valgus (acquired), unspecified foot; T39.1X5A Adverse effect of 4-Aminophenol derivatives, initial encounter; K76.82 Hepatic encephalopathy; E16.2 Hypoglycemia, unspecified; R19.7 Diarrhea, unspecified; D69.6 Thrombocytopenia, unspecified; G89.29 Other chronic pain; H52.10 Myopia, unspecified eye; I45.4 Nonspecific intraventricular block; M48.061 Spinal stenosis, lumbar region without neurogenic claudication; E87.6 Hypokalemia; N25.0 Renal osteodystrophy; Z90.89 Acquired absence of other organs; Z98.42 Cataract extraction status, left eye; Z98.41 Cataract extraction status, right eye; Z86.74 Personal history of sudden cardiac arrest; Z88.8 Allergy status to other drugs, medicaments and biological substances; Z79.899 Other long term (current) drug therapy; Z79.01 Long term (current) use of anticoagulants; Z79.890 Hormone replacement therapy; Z90.49 Acquired absence of other specified parts of digestive tract; Z95.5 Presence of coronary angioplasty implant and graft; Z87.19 Personal history of other diseases of the digestive system; Z68.23 Body mass index [BMI] 23.0-23.9, adult; Z82.49 Family history of ischemic heart disease and other diseases of the circulatory system; Z81.8 Family history of other mental and behavioral disorders; Z78.1 Physical restraint status; Z99.89 Dependence on other enabling machines and devices
CPT/HCPCS: 0241U; 36415; 70450; 71045; 71250; 72125; 74018; 74177; 80048; 80053; 80074; 82140; 82550; 82803; 82947; 83605; 83735; 83880; 84100; 84132; 84145; 84478; 84484; 85025; 85610; 87040; 87493; 87507; 92526; 92610; 93005; 93010; 94640; 94644; 94664; 94760; 94762; 96365-59; 96367; 96375; 96376; 99285-25; A9270; C1751; C8929; G0480; J0132; J0456; J0612; J0696; J1630; J1815; J1885; J1940; J2060; J2270; J2405; J2543; J3010; J3370; J3411; J3475; J3480; J7030; J7050; J7060; J7070; J7120; J7799; Q9957; Q9967